=== PATIENT | male | born 1980 | race Caucasian/White ===

== ENCOUNTER 2025-01-27 13:58 | Outpatient (AMB) | payer MEDICAID, SELFPAY ==
--- NOTE | 2025-01-27 14:15 | MHC.OFFVIS ---
Intake Visit Reasons: Kidney stones Intake Note: Patient is present for KIDNEY STONES Urology Medication:TAMSULSOIN Antibiotic Allergy:NONE Blood Thinner:NONE [employer] Specialist Required: No [employer] Specialist Services: [employer] Specialist Present [employer] Specialist Name: Vero Rushing Allergies No Known Allergies Allergy (Verified 01/27/25 14:20) Medication List - Last Reviewed 01/27/25 by DULCE Henning acetaminophen 1,000 mg PO Q6H PRN cyclobenzaprine 5 mg PO TID PRN fenofibrate micronized 134 mg PO QAM oxycodone 5 mg PO Q6H PRN phenazopyridine 100 mg PO TID simvastatin 40 mg PO DAILY tamsulosin 0.4 mg PO DAILY HPI Comments Details: Mikey is a 44-year-old Tajik speaking male patient of Dr. Herr. He has a past medical history of nephrolithiasis, hyperlipidemia and intrarenal abdominal aortic aneurysm. He presents to the office today as a new patient for nephrolithiasis. He reports having followed up with his PCP as he had a CT in August that showed right-sided nonobstructing kidney stones measuring 8 mm. He discusses at length his longstanding history of nephrolithiasis since the age of 17. He reports previously having had multiple surgeries to include what sounds like a ureteroscopy as well as as well in the past. He reports having had multiple surgical interventions for nephrolithiasis in his country as well as in [place]. He currently continues to experience bilateral flank pain right side greater than left. He also describes having had intermittent episodes of nausea and vomiting over the last few weeks. In office urinalysis results reviewed with the patient today. We discussed obtaining more recent imaging. We also discussed seeking emergency room care if symptoms persist and/or worsen. He denies incontinence, hematuria, dysuria, foul smelling urine, changes to urinary stream,fever, and or chills. All questions were answered. He otherwise offers no other issues or concerns at this time. [facility] Medical History (Updated 01/27/25 @ 14:48 by HUGO Mejia) Infrarenal abdominal aortic aneurysm (AAA) without rupture High triglycerides Positive QuantiFERON-TB Gold test Nephrolithiasis Review of Systems Const All systems reviewed & are unremarkable except as noted in HPI and below Physical Exam Const General: cooperative, comfortable, no acute distress, well developed, alert and awake Orientation/consciousness: patient oriented x3 Limitations: language barrier HEENT Head: Yes normal to inspection, Yes normocephalic and Yes atraumatic Ears: hearing grossly normal bilaterally Eyes General: appearance normal, both eyes and all related structures Neck Neck: Yes normal visual inspection and Yes trachea midline Chest Chest palpation & inspection: normal inspection of the chest Resp Effort & Inspection: normal respiratory effort and able to speak in complete sentences Cardio Rate: regular rate GI Inspection: Yes normal to inspection General: Yes no CVA tenderness Back/Spine/Pelvis Back: no CVA tenderness Skin General skin exam: no rashes or lesions noted Neuro General: patient oriented x3 Extrem General: Yes normal to inspection Psych Appearance: grossly normal and well kempt Mental Status: mental status grossly normal Speech and movement: Normal speech and movement present and Clear speech present Affect: normal affect Attitude: cooperative Thought process: Normal thought process present Thought content: Normal thought content present Insight: Fair insight present (Psych) Judgement: Fair judgement present (Psych) Results AMB Urinalysis, Automated UA Leukoctes 0 Gadiel/uL Last Edit by Kaylee Welch CCM on 01/27/25 14:34 UA Nitrite Negative Last Edit by Kaylee Welch CCM on 01/27/25 14:34 UA Urobilinogen 0.2 mg/dL Last Edit by Kaylee Welch CCM on 01/27/25 14:34 UA Protein 0 mg/dL Last Edit by Kaylee Welch CCM on 01/27/25 14:34 UA pH 6.0 Last Edit by Kaylee Welch [facility] on 01/27/25 14:34 UA Blood 0 Дмитрий/uL Last Edit by Kaylee Welch [facility] on 01/27/25 14:34 UA Specific [place] 1.030 Last Edit by Kaylee Welch CCM on 01/27/25 14:34 UA Ketone Negative Last Edit by Kaylee Welch CCM on 01/27/25 14:34 UA Bilirubin 0 mg/dL Last Edit by Kaylee Welch [facility] on 01/27/25 14:34 UA Glucose 0 mg/dL Last Edit by Kaylee Welch [facility] on 01/27/25 14:34 Results Reviewed Results Reviewed: Laboratory Last Values Urine pH (Auto) 6.0 01/27/25 14:33 Specific [place] (Auto) 1.030 01/27/25 14:33 Urine Protein (Auto) 0 mg/dL 01/27/25 14:33 Glucose (UA)(Auto) 0 mg/dL 01/27/25 14:33 Urine Ketones (Auto) Negative 01/27/25 14:33 Urine Blood (Auto) 0 Дмитрий/uL 01/27/25 14:33 Urine Nitrite (Auto) Negative 01/27/25 14:33 Urine Bilirubin (Auto) 0 mg/dL 01/27/25 14:33 Urine Urobilinogen (Auto) 0.2 mg/dL 01/27/25 14:33 Leukocyte Esterase (Auto) 0 Gadiel/uL 01/27/25 14:33 Assessment & Plan Assessment & Plan (1) Nephrolithiasis: Code(s): N20.0 - Calculus of kidney Category: Medical (2) Flank pain: Code(s): R10.9 - Unspecified abdominal pain Category: Medical Plan In office urinalysis results reviewed with the patient today; as noted above. Will obtain stat CT KUB for further assessment evaluation. We discussed the importance of continuing to drink plenty of water daily. We also discussed worsening symptoms. Continue Flomax Follow-up in 1-2 weeks with imaging to be completed prior; or sooner with any issues, concerns, and or questions. Orders: Orders AMB Urinalysis Automated Today Z13.9 - Encounter for screening, unspecified CT kidney stone Today N20.0 - Calculus of kidney, R10.9 - Unspecified abdominal pain Patient Instructions: The patient had an opportunity to ask questions regarding the treatment plan. All questions were answered. Physical exam, labs, and imaging were discussed and reviewed in detail. As well as risks, benefits, and discussion of treatment choices. No major barriers to understanding were identified. The patient expressed understanding and agreement with the above treatment plan. The patient was made aware they should contact our office by phone for worsening of their current condition, the appearance of new symptoms, or with any questions or concerns. Compliance is encouraged with any medications and follow up testing that is ordered. It is a privilege to be allowed the opportunity to participate in? your urological care.? Again, if you have any questions or concerns If you have any questions or concerns please do not hesitate to contact me. The office is [phone]. This note is constructed using voice recognition software. While every effort has been made to ensure accuracy retail training manager errors may have been included. Yours sincerely, JOHN Mejia-MITCHELL Coding Level of Care Code New Pt Level 3 (15037) Diagnoses Nephrolithiasis N20.0 Flank pain R10.9
--- OUTSIDE RECORDS SUMMARY | 2025-01-27 17:42 | XMS_ITS | Encounter Summary ---
Author Organization Formerly [facility] Address [address] [place] [id number] Phone Care Team Providers Care Toe Pounder Name Role Phone JewelDominique monahan ASSISTANT SURVEYOR Primary Care Provider Pcp, Unknown Unavailable Unavailable Encounter Details Date Type Department Care Team (Latest Contact Info) Description 05/30/2023 Transcribe Orders [facility] Specimen Processing [address] [place] [address] Main Peterson MD [address] [facility] [place] [address] [email or web address] Frequency of urination (Primary Dx) Social History Tobacco Use Types Packs/Day Years Used Date Smoking Tobacco: Never Assessed Education Answer Date Recorded Are you interested in more education? Not on verena e 05/30/2023 Are you concerned about learning? Not on file 05/30/2023 No 05/30/2023 No 05/30/2023 Digital Access Answer Date Recorded No 05/30/2023 No 05/30/2023 Reliable internet access at home? Not on file 05/30/2023 Device with a working camera? Not on file Sex and Gender Information Value Date Recorded Sex Assigned at Not on file Legal Sex Male 2:57 PM EST Gender Identity Not on file Sexual Orientation Not on file documented as of this encounter Plan of Treatment Not on file documented as of this encounter Procedures Procedure Name Priority Date/Time Associated Diagnosis Comments URINE CULTURE Routine 05/30/2023 1:53 PM EST Frequency of urination URINE SEDIMENT Routine 05/30/2023 1:53 PM EST URINALYSIS Routine 05/30/2023 1:53 PM EST Frequency of urination documented in this encounter Results * (ABNORMAL) Urine sediment (05/30/2023 1:53 PM EST) WBC 21-49(A) NONE SEEN /hpf [facility] RBC 50-100(A) NONE SEEN /hpf [facility] URINE EPITHELIAL 0-4(A) NONE SEEN [facility] MUCUS Trace(A) NONE SEEN /hpf [facility] BACTERIA 1+(A) NONE SEEN /hpf [facility] YEAST 1+(A) NONE SEEN /hpf [facility] 05/30/2023 1:53 PM EST 05/30/2023 1:57 PM EST Main Peterson MD URINE ORDERABLES Final Res ult Performing Organization Address [facility] Co de Phone Number [address] [address] * (ABNORMAL) Urinalysis (05/30/2023 1:53 PM EST) COLOR Yellow Yellow [facility] [place] [facility] GLUCOSE Negative Negative [facility] BILI Negative Negative [facility] KETONES Negative Negative [facility] SPECIFIC GRAVITY 1.015 1.005 - 1.030 [facility] BLOOD 3+(A) Negative [facility] PH 6.0 5.0 - 8.0 [facility] Protein-UA 1+(A) Negative [facility] NITRITE Negative Negative [facility] Leukocyte esterase, ur 3+(A) Negative [facility] Urine (Urine) 05/30/2023 1:5 3 PM EST 05/30/2023 1:57 PM EST Main Peterson MD URINE ORDERABLES Final Res ult Performing Organization Address City/[facility]/ZIP Co de Phone Number [address] [address] * (ABNORMAL) Urine culture (05/30/2023 1:53 PM EST) Special Requests None 05/30/2023 1:53 PM EST [facility] Urine Culture 10,000 to 100,000 colony forming units per mL YEAST(A) 06/01/2023 9:52 AM EST [facility] Urine (Urine) 05/30/2023 1:5 3 PM EST 05/30/2023 1:57 PM EST Comment:CATHETER Main Peterson MD MICROBIOLOGY - GENERAL ORD ERABLES Final Result Performing Organization Address [facility]/ZIP Co de Phone Number [address] [address] documented in this encounter Visit Diagnoses Diagnosis Frequency of urination- Primary Urinary frequency documented in this encounter Care Teams Toe Pounder Relationship Specialty Start Date End Date Dominique Holloway NP [address] [place] [address] PCP - General Nurse Practitioner 05/03/23 Pcp, Unknown 05/03/23 documented as of this encounter Additional Source Comments The information contained in this document represents components of the legal health record. It is not the complete legal health record.[facility]
--- OUTSIDE RECORDS SUMMARY | 2025-01-27 17:42 | XMS_ITS | Clinical Summary ---
Author Organization [facility] Address [address] [place] [address] Care Team Providers Care Fruit Culler Name Role Phone Ronny Smith MD Primary Care Provider [phone] Source Comments PLEASE NOTE, if this patient is a minor, it may be UNLAWFUL to discuss sensitive information that is contained in these records (such as FAMILY PLANNING, MENTAL HEALTH or SUBSTANCE ABUSE) with the minor patient's parent or other person without the patient's specific authorization.[facility] Allergies No known active allergies Medications multivitamin tabletIndications: Refugee health examination Take 1 Tablet by mouth once daily Take 1 tablet by mouth daily. 30 Tablet 2 03/05/20 23 Active nicotine, polacrilex, (NICORETTE) 2 mg gumIndications:Smo reilly as needed for cravings - Weeks 1-6: Chew 1 piece of gum every 1-2 hours. Weeks 7-9: Chew 1 piece of gum every 2-4 hours. Weeks 10-12: Chew 1 piece of gum every 4-8 hours. (minimum: 9 pieces/day for first 6 weeks; maximum: 24 pieces/day during entire regimen 110 Each 3 05/16/19 24 Active fenofibrate micronized (LOFIBRA) 134 mg capsuleIndications :High triglycerides Take 1 Capsule by mouth once daily with breakfast 90 Capsule 2 03/19/20 24 Active omega-3 acid ethyl esters (LOVAZA) 1 gram capsuleIndications :High triglycerides Take 2 Capsules by mouth 2 (two) times daily 360 Capsule 03/19/20 24 Active simvastatin (ZOCOR) 40 mg tabletIndications: Hyperlipidemia, unspecified hyperlipidemia type Take 1 Tablet by mouth once daily 90 Tablet 3 04/28/20 24 Active hydrocortisone acetate (PROCTOCORT) 10 % (80 mg) rectal foamIndications:Re ctal bleeding Place 1 Applicator rectally 2 (two) times daily 15 g 06/09/19 25 Active phenazopyridine (PYRIDIUM) 100 mg tabletIndications: Dysuria Take 1 Tablet by mouth 3 (three) times daily with meals. 9 Tablet 01/09/20 25 Active cyclobenzaprine (FLEXERIL) 5 mg tablet Take 1 Tablet by mouth 3 (three) times daily as needed for muscle spasms. 15 Tablet 01/09/20 25 Active acetaminophen (TYLENOL) 500 mg tabletIndications: Dysuria,Nephrolith iasis Take 2 Tablets by mouth every 6 (six) hours as needed for pain. 30 Tablet 01/09/20 25 Active tamsulosin (FLOMAX) 0.4 mg 24 hr capsuleIndications :Nephrolithiasis Take 2 Capsules by mouth once daily. 180 Capsule 01/09/20 25 Active oxyCODONE (ROXICODONE) 5 mg tabletIndications: Rectal bleeding,Anal fistula Take 1 Tablet by mouth every 6 (six) hours as needed for pain. Max Daily Amount: 20 mg 20 Tablet 01/09/20 25 Active GAVILAX 17 gram/dose powder Take 17 g by mouth once daily. 09/26/19 25 Active acetaminophen (TYLENOL) 500 mg tabletIndications: Rectal bleeding Take 2 Tablets by mouth every 6 (six) hours as needed for pain 500 Tablet 06/09/19 25 025 Discontin ued(Reord er (E-Cancel Not Sent)) phenazopyridine (PYRIDIUM) 100 mg tabletIndications: Dysuria Take 1 Tablet by mouth 3 (three) times daily with meals 9 Tablet 07/08/19 25 025 Discontin ued(Reord er (E-Cancel Not Sent)) tamsulosin (FLOMAX) 0.4 mg 24 hr capsuleIndications :Nephrolithiasis,D ysuria Take 1 Capsule by mouth once daily. 30 Capsule 1 10/17/19 25 025 Discontin ued(Thera py completed /Not needed) Active Problems Problem Noted Date Diagnosed Date Anal fistula 10/21/2024 Rectal or anal pain 09/25/2024 Infrarenal abdominal aortic aneurysm (AAA) without rupture ([facility] V24) 09/02/2024 Overview (09/02/2024): 08/14/24: CT abdomen + Pelvis w/o contrast incidental finding of 3 cm infrarenal AAaneurysm. ACR recommendation of 2-3 year eval with U/S or CT. Re imaging Due August 2027. High triglycerides 09/26/2023 Positive QuantiFERON-TB Gold test 09/13/2023 Overview (09/13/2023): Referred to TB clinic Nephrolithiasis 03/05/2023 Overview (05/28/2024): [facility] 03/13/2024 History of kidney stones requiring requiring multiple procedures (in [place], as well as [place], and here at [facility]) who is presenting with acute onset right flank and abdominal pain. Patient had a percutaneous nephrolithotomy, which was complicated by a pseudoaneurysm status post angio ablation about one year ago. He states for the past 1 week he has had burning with urination. EP interpretation of the CAT scan of abdomen pelvis no evidence of extravasation from abdominal aortic aneurysm and no noted hydronephrosis. Clinical presentation is most concerning for abdominal aortic aneurysm CT angio performed by the preceding team shows an aneurysm well less than 5 cm recommendation for surveillance in [address] does not reveal any evidence of an obstructing stone Urine showed no signs of a kidney infection Treated with tylenol and Ibuprofen Type of surgical procedure: kidney stone removal Name of surgeon: Dr. Harp - [facility] Date of procedure: 06/04/2023 Encounters Date Type Department Care Team Description 01/27/2025 Interim Notes [address] [address] Jm Kelley 01/22/2025 Interim Notes [address] [address] Jm Kelley 01/22/2025 Interim Notes [address] [address] Jm Kelley 01/21/2025 11:00 AM EDT Office Visit [address] [address] Samira, MYLES Downey Rufaida 01/15/2025 Interim Notes [address] [address] JefferySigifredo vyass 01/12/2025 Results Follow-Up [address] [address] Ayse Mccracken NP 01/08/2025 11:00 AM EDT Office Visit [id number] [place] [address] Ayse Mccracken NP Alqaisy, Rufaida 12/29/2024 9:40 AM EDT Office Visit [facility] [address] [place] [address] Eneida Palomares DDS from Last 3 Months Immunizations Immunization Administration Dates Next Due COVID-19,SARS-COV-2 VACCINE, UNSPECIFIED (US Adm in) 03/07/2021,02/13/2021 Flu, Preservative Free 03/05/2023 Hep B,adult,adjuvanted (HEPLISAV) 09/25/2023, Influenza (FLUBLOK),recombinant,injectable,preservative Free 03/11/2024 MMR (MMR II/Priorix) 02/03/2023,12/09/2022 Moderna COVID-19 (Spikevax), Mrna, Lnp-s, Pf, 50 Mcg/0.5 Ml, 12yr+ 03/11/2024 Pfizer COVID-19 (Comirnaty), Mrna, Lnp-s, Pf, Jake-sucrose, 30 Mcg/0.3 Ml, 12yr+ 06/12/2023 TDAP 03/05/2023 Td (adult),2 Lf tetanus toxo id (TDVAX), preservative free 06/12/2023 Social History Tobacco Use Types Packs/Day Years Used Date Smoking Tobacco: Every Day Cigarettes Passive Smoke Exposure: Never Smokeless Tobacco: Never Tobacco Cessation:Ready to Q uit: Not Asked; Counseling Given: Not Answered Comments:Since 14 yo. 1 pack a day Alcohol Use Standard Drinks/Week Comments Never 0 (1 standard drink = 0.6 oz pur e alcohol) Social Connections Answer Date Recorded How often do you feel lonely or isolated from th ose around you? 1 03/16/2024 Financial Resource Strain Answer Date R ecorded Hard to pay for: Transportation 2 03/16/2024 Stress Answer Date Recorded Do you feel these kinds of stress these days? 1 03/16/2024 Physical Activity Answer Date Recorded Physical Activity 2 06/21/2023 Food Insecurity Answer Date Recorded Hard to pay for: Food 1 03/16/2024 Transportation Needs Answer Date Record ed Hard to pay for: Transportation 2 03/16/2024 Housing Stability Answer Date Recorded What is your housing situation today? 2 03/16/2024 Safety and Environment Answer Date Stef rded Safety 1 06/21/2023 Utilities Answer Date Recorded Hard to pay for: Utilities 1 03/16 Employment Answer Date Recorded Stress 1 06/21/2023 Sex and Gender Information Value Date Recorded Sex Assigned at Male 03/05/2023 9:36 AM PDT Legal Sex Male 5:56 AM PDT Gender Identity Male 03/05/2023 9:36 AM PDT Sexual Orientation Straight 03/05/2023 9: 36 AM PDT Last Filed Vital Signs Vital Sign Reading Time Taken Comments Blood Pressure 122/64 01/21/2025 11:02 AM EDT Pulse 68 01/21/2025 11:02 AM EDT Temperature 37.2 C (98.9 F) 01/21/2025 11:02 AM EDT Respiratory Rate 16 01/21/2025 11:02 AM EDT Oxygen Saturation 98% 01/08/2025 11:03 AM EDT Inhaled Oxygen Concentration - - Weight 101.2 kg (223 lb) 01/21/2025 11:02 AM EDT Height 175.3 cm (5' 9 ) 01/08/2025 11:03 AM EDT Body Mass Index 32.93 01/08/2025 11:03 AM EDT Plan of Treatment Upcoming Encounters Date Type Department Care Team (Late st Contact Info) Description 02/17/2025 4:20 PM EDT Office Visit [facility] [address] [place] [address] Francisco Frias, MIREYAS [address] [place] [address] 02/25/2025 9:20 AM EDT Office Visit [facility] [address] [place] [phone] Manuel Kidd PA-C [address] [place] [address] Health Maintenance Due Date Last Done Comments Dental FMX/Pano 1981 Imm-HPV (1 - 3-dose SCDM series) 2008 Dental Examination 08/09/2024 08/08/2023 Imm-Influenza (#1) 2025 03/11/2024, 03/05/2023 Tobacco Cessation Counseling (#1) 03/19/2025 024 Lipid Screening 03/20/2025 03/20/2024, 12/2023, 09/25/2023, Additional history exists Anxiety Screening 05/28/2025 05/28/2024 Annual Wellness (Adult): Indicated (All Coverage) 01/08/2026 01/08/2025 Diabetes Screening 01/21/2026 01/21/2025, 0 10/16/2024, 06/07/2023, Additional history exists Hypertension Screening (#1) 01/21/2026 Imm-DTaP/Tdap/Td (3 - Td or Tdap) 06/12/2033 024, 03/05/2023 Imm-Hepatitis B Completed 09/25/2023, 06/12/2023 [id number] Completed 03/11/2024, 05/15, 03/07/2021, Additional history exists Alcohol and Drug Screen Completed 05/28/19, 09/25/2023, 03/05/2023 Depression Annual Screen Completed 01/08/2025, 02/11 HIV Screening Completed 01/21/2025, 12/12, 03/05/2023 Hepatitis C Screening Completed 01/21/2025, 023 Imm-Pneumococcal Discontinued Procedures Procedure Name Priority Date/Time Associated Diagnosis Comments RHEUMATOID FACTOR QUANTITATIVE Routine 01/21/2025 11:42 AM EDT Nonintractable headache, unspecified chronicity pattern, unspecified headache type Body aches YASH SCREEN, IFA, WITH REFLEX TO TITER AND PATTERN/MIXED CONNECTIVE PANEL 2 Routine 01/21/2025 11:42 AM EDT Nonintractable headache, unspecified chronicity pattern, unspecified headache type Body aches HIV 1/2 AG & AB W/RFLX (4TH GEN) Routine 01/21/2025 11:42 AM EDT Nonintractable headache, unspecified chronicity pattern, unspecified headache type Body aches ACUTE HEPATITIS PANEL W/RFLX Routine 01/21/2025 11:42 AM EDT Nonintractable headache, unspecified chronicity pattern, unspecified headache type Body aches CREATININE KINASE ISOENZYMES W/CK TOTAL Routine 01/21/2025 11:42 AM EDT Nonintractable headache, unspecified chronicity pattern, unspecified headache type Body aches BLOOD COUNT COMPLETE AUTOMATED Routine 01/21/2025 11:42 AM EDT Nonintractable headache, unspecified chronicity pattern, unspecified headache type Body aches C-REACTIVE PROTEIN Routine 01/21/2025 11 :42 AM EDT Nonintractable headache, unspecified chronicity pattern, unspecified headache type Body aches COMPREHENSIVE METABOLIC PANEL Routine 01/21/2025 11:42 AM EDT Nonintractable headache, unspecified chronicity pattern, unspecified headache type Body aches RPR (DIAGNOSIS) WITH REFLEX TO TITER AND CONFIRMATORY TESTING Routine 01/08/2025 12:06 PM EDT Dysuria BLOOD COUNT COMPLETE AUTOMATED Routine 01/08/2025 12:06 PM EDT Dysuria HIV 1/2 AG & AB W/RFLX (4TH GEN) Routine 01/08/2025 12:06 PM EDT Dysuria OFFICE VISIT OBSERVATION NO OTHER SRVC PERFORMED Routine 12/29/2024 9:40 AM EDT Encounter for dental examination LIPIDS W RFLX TO DIRECT LDL Routine 03/20/2024 9:03 AM EST High triglycerides COMP ORAL EVALUATION - NEW/ESTABLISHED PATIENT Routine 08/08/2023 1:00 PM EDT Dental caries on smooth surface penetrating into pulp from Last 3 Months or Most Recently Relevant to Health Maintenance Results * ??YASH SCREEN, IFA, WITH REFLEX TO TITER AND PATTERN/MIXED CONNECTIVE PANEL 2 Routine (01/21/2025 11:42 AM EDT) YASH SCREEN NEGATIVE NEGATIVE 01/26/2025 10:56 AM EDT 404 Found! [place] [email or web address] Blood Blood / Unknown 01/21/2025 1 1:42 AM EDT 01/22/2025 3:48 AM EDT Narrative [email or web address] [facility] - 01/26/2025 10:57 AM EDT FASTING:NO YASH IFA is a first line screen for detecting the presence of up to approximately 150 autoantibodies in various autoimmune diseases. A negative YASH IFA result suggests an YASH-associated autoimmune disease is not present at this time, but is not definitive. If there is high clinical suspicion for Sjogren's syndrome, testing for anti-SS-A/Ro antibody should be considered. Anti-Silvia-1 antibody should be considered for clinically suspected inflammatory myopathies. . AC-0: Negative . International Consensus on YASH Patterns (https://doi.org/10.1515/eufh-6631-0461) . For additional information, please refer to http://education.[employer]/faq/EZG877 (This link is being provided for informational/ educational purposes only.) . Shayan Hogan PA-C LAB - BLOOD DRAW Final Result 404 Found! [place] [email or web address] [address] [place] [address], [address] Found! [address] [address] * HIV 1/2 AG & AB W/RFLX (4TH GEN) Routine (01/21/2025 11:42 AM EDT) Only the most recent of2 resultswithin the time period is included. HIV Screen Final HIV NEGATIVE 01/22/2025 5:00 AM EDT 404 Found! [facility] HIV AG/AB, 4TH GEN NON-REACTIVE NON-REACT IRAJ 01/22/2025 5:00 AM EDT 404 Found! [facility] Blood Blood / Unknown 01/21/2025 1 1:42 AM EDT 01/22/2025 3:38 AM EDT [facility] - 01/22/2025 5:07 AM EDT FASTING:NO HIV-1 antigen and HIV-1/HIV-2 antibodies were not detected. There is no laboratory evidence of HIV infection. us Shayan Hogan PA-C LAB - BLOOD DRAW Final Result [email or web address] [address] [address], [address] Found! [address] [address] * ACUTE HEPATITIS PANEL W/RFLX Routine (01/21/2025 11:42 AM EDT) Pathologist [facility] HEPATITIS A IGM ANTIBODY NON-REACT IRAJ NON-REACT IRAJ 01/22/2025 5:00 AM EDT 404 Found! [facility] HEPATITIS B SURFACE ANTIGEN NON-REACT IRAJ NON-REACT IRAJ 01/22/2025 4:59 AM EDT 404 Found! [facility] HEPATITIS B CORE IGM ANTIBODY NON-REACT IRAJ NON-REACT IRAJ 01/22/2025 5:00 AM EDT 404 Found! [facility] HEPATITIS C ANTIBODY NON-REACT IRAJ NON-REACT IRAJ 01/22/2025 5:00 AM EDT 404 Found! [facility] Blood Blood / Unknown 01/21/2025 1 1:42 AM EDT 01/22/2025 3:36 AM EDT [facility] - 01/22/2025 5:07 AM EDT FASTING:NO . HCV antibody was non-reactive. There is no laboratory evidence of HCV infection. . In most cases, no further action is required. However, if recent HCV exposure is suspected, a test for HCV RNA (test code 41949) is suggested. . For additional information please refer to http://[employer]faq/YJA14y2 (This link is being provided for informational/ educational purposes only.) . . For additional information, please refer to http://[employer]faq/FNQ949 (This link is being provided for informational/ educational purposes only.) . Shayan MIRANDA-C LAB - BLOOD DRAW Final Result Performing Organization Address City/[facility]/ZIP Co de Phone Number [facility] [address] [address], [facility] [address] [address] * CREATININE KINASE ISOENZYMES W/CK TOTAL Routine (01/21/2025 11:42 AM EDT) CREATINE KINASE, TOTAL 108 26 - 366 U/L 01/24/2025 9:45 AM EDT [facility]/ JHOAN SAMPSON CK-BB None Detected None Detected % 01/26/2025 12:43 PM EDT [facility]/ STAPLES CHANTILLY CK-MB 0 <5 % 01/26/2025 12:43 PM EDT [facility]/ STAPLES CHANTILLY CK-MM 100 95 - 100 % 01/26/2025 12:43 PM EDT [facility]/ STAPLES SYDTILLY INTERPRETATION see note 01/26/2025 12:43 PM EDT [facility]/ STAPLES SYDTILLY Blood Blood / Unknown 01/21/2025 1 1:42 AM EDT 01/23/2025 3:07 PM EDT [facility] SYDTILLY - 01/26/2025 12:44 PM EDT FASTING:NO FASTING:NO Normal isoenzyme pattern with a normal total activity. us Shayan Hogan RUTH-Juan LAB - BLOOD DRAW Final Result Performing Organization Address City/[facility]/ZIP Co de Phone Number [email or web address] [address] [place], [place] , [place] [facility]/STAPLES poLightTILLY [address] [place], [place] * RHEUMATOID FACTOR QUANTITATIVE Routine (01/21/2025 11:42 AM EDT) RHEUMATOID FACTOR <10 <14 IU/mL 01/22/2025 5:08 AM EDT [facility] Blood Blood / Unknown 01/21/2025 1 1:42 AM EDT 01/22/2025 3:38 AM EDT [facility] - 01/22/2025 5:17 AM EDT FASTING:NO [facility]-C LAB - BLOOD DRAW Final Result Performing Organization Address [facility] Co de Phone Number [address] Found! [address] [address], [facility] [address] [address] * C-REACTIVE PROTEIN Routine (01/21/2025 11:42 AM EDT) Pathologist [facility] C-REACTIVE PROTEIN 6.4 <8.0 mg/L 01/22/2025 5:08 AM EDT [facility] Blood Blood / Unknown 01/21/2025 1 1:42 AM EDT 01/22/2025 3:38 AM EDT [facility] - 01/22/2025 5:17 AM EDT FASTING:NO Shayan [facility]-C LAB - BLOOD DRAW Final Result Performing Organization Address [facility] de Phone Number [address] Found! [address] [address], [employer] [address] [address] * (ABNORMAL) BLOOD COUNT COMPLETE AUTOMATED Routine (01/21/2025 11:42 AM EDT) Only the most recent of2 resultswithin the time period is included. Pathologist [facility] WHITE BLOOD CELL COUNT 8.8 3.8 - 10.8 Thousand/ uL 01/22/2025 4:31 AM EDT [facility] RED BLOOD CELL COUNT 5.79 4.20 - 5.80 Million/u L 01/22/2025 4:31 AM EDT [facility] HEMOGLOBIN 17.2(H) 13.2 - 17.1 g/dL 01/22/2025 4:31 AM EDT [facility] HEMATOCRIT 51.6(H) 38.5 - 50.0 % 01/22/2025 4:31 AM EDT [facility] MCV 89.1 80.0 - 100.0 fL 01/22/2025 4:31 AM EDT [facility] MCH 29.7 27.0 - 33.0 pg 01/22/2025 4:31 AM EDT [facility] MCHC 33.3 32.0 - 36.0 g/dL 01/22/2025 4:31 AM EDT [facility] RDW 13.5 11.0 - 15.0 % 01/22/2025 4:31 AM EDT [facility] PLATELET COUNT 226 140 - 400 Thousand/ uL 01/22/2025 4:31 AM EDT [facility] MPV 9.3 7.5 - 12.5 fL 01/22/2025 4:31 AM EDT [facility] Blood Blood / Unknown 01/21/2025 1 1:42 AM EDT 01/22/2025 3:20 AM EDT Narrative [email or web address] - 01/22/2025 4:33 AM EDT FASTING:NO For adults, a slight decrease in the calculated MCHC value (in the range of 30 to 32 g/dL) is most likely not clinically significant; however, it should be interpreted with caution in correlation with other red cell parameters and the patient's clinical condition. us Shayan Hogan PA-C LAB - BLOOD DRAW Final Result [email or web address] [address] [address], [address] Found! [address] [address] * COMPREHENSIVE METABOLIC PANEL Routine (01/21/2025 11:42 AM EDT) GLUCOSE 93 65 - 139 mg/dL 01/22/2025 6:00 AM EDT [facility] UREA NITROGEN (BUN) 16 7 - 25 mg/dL 01/22/2025 6:00 AM EDT [facility] CREATININE (blood) 0.79 0.60 - 1.29 mg/dL 01/22/2025 6:00 AM [facility] EGFR 113 > OR = 60 mL/min/1. 73m2 01/22/2025 6:00 AM [facility] BUN/CREATININE RATIO SEE NOTE: 6 - 22 (calc) 01/22/2025 6:00 AM [facility] SODIUM 138 135 - 146 mmol/L 01/22/2025 6:00 AM [facility] POTASSIUM 4.4 3.5 - 5.3 mmol/L 01/22/2025 6:00 AM [facility] CHLORIDE 106 98 - 110 mmol/L 01/22/2025 6:00 AM [facility] CARBON DIOXIDE 24 20 - 32 mmol/L 01/22/2025 6:00 AM [facility] CALCIUM 9.3 8.6 - 10.3 mg/dL 01/22/2025 6:00 AM [facility] PROTEIN, TOTAL 7.4 6.1 - 8.1 g/dL 01/22/2025 6:00 AM [facility] ALBUMIN 4.6 3.6 - 5.1 g/dL 01/22/2025 6:00 AM [facility] GLOBULIN 2.8 1.9 - 3.7 g/dL (calc) 01/22/2025 6:00 AM [facility] ALBUMIN/GLOBULI N RATIO 1.6 1.0 - 2.5 (calc) 01/22/2025 6:00 AM [facility] BILIRUBIN, TOTAL 0.5 0.2 - 1.2 mg/dL 01/22/2025 6:00 AM [facility] ALKALINE PHOSPHATASE 98 36 - 130 U/L 01/22/2025 6:00 AM [facility] AST 21 10 - 40 U/L 01/22/2025 6:00 AM [facility] ALT 26 9 - 46 U/L 01/22/2025 6:00 AM [facility] Blood Blood / Unknown 01/21/2025 1 1:42 AM EDT 01/22/2025 3:38 AM EDT [facility] - 01/22/2025 6:31 AM EDT FASTING:NO . Non-fasting reference interval . Not Reported: BUN and Creatinine are within reference range. . Shayan Hogan PA-C LAB - BLOOD DRAW Final Result Performing Organization Address [facility] Co de Phone Number [address] Found! [address] [address], [address] Found! [address] [address] * RPR (DIAGNOSIS) WITH REFLEX TO TITER AND CONFIRMATORY TESTING Routine (01/08/2025 12:06 PM EDT) [facility] RPR (DX) W/REFL TITER AND CONFIRMATORY TESTING NON-REACT IRAJ NON-REACT IRAJ 01/10/2025 4:47 PM EDT 404 Found! [facility] Serum Blood / Unknown 01/08/2025 1 2:06 PM EDT 01/09/2025 2:00 AM EDT Narrative [email or web address] - 01/10/2025 4:51 PM EDT FASTING:NO . No laboratory evidence of syphilis. If recent exposure is suspected, submit a new sample in 2-4 weeks. . Ayse Mccracken NP LAB - BLOOD DRAW Final Resul t Performing Organization Address [facility] Co de Phone Number [address] Found! [address] [address], [address] Found! [address] [address] * (ABNORMAL) LIPIDS W RFLX TO DIRECT LDL (03/20/2024 9:03 AM EST) [facility] CHOLESTEROL, TOTAL 256(H) <200 mg/dL [facility] HDL CHOLESTEROL 28(L) > OR = 40 mg/dL [facility] TRIGLYCERIDES 423(H) <150 mg/dL [facility] Comment: If a non-fasting specimen was collected, consider repeat triglyceride testing on a fasting specimen if clinically indicated. Sharonda et al. J. of Clin. Lipidol. 2015;9:129-169. LDL-CHOLESTEROL See Note [employer] Comment: LDL cholesterol not calculated. Triglyceride levels greater than 400 mg/dL invalidate calculated LDL results. Reference range: <100 Desirable range <100 mg/dL for primary prevention; <70 mg/dL for patients with CHD or diabetic patients with > or = 2 CHD risk factors. LDL-C is now calculated using the Rowena calculation, which is a validated novel method providing better accuracy than the Friedewald equation in the estimation of LDL-C. Giovani PRESLEY et al. JOHNNIE. 2013;310(19): 4076-0251 (http://education.E96/faq/PYN281) CHOL/HDLC RATIO 9.1(H) <5.0 (calc) [facility] NON-HDL CHOLESTEROL 228(H) <130 mg/dL (calc) [facility] Comment: For patients with diabetes plus 1 major ASCVD risk factor, treating to a non-HDL-C goal of <100 mg/dL (LDL-C of <70 mg/dL) is considered a therapeutic option. Blood Blood / Unknown 03/20/2024 9 :03 AM EST 03/20/2024 9:04 AM EST Narrative [facility] - 2024 11:15 AM EST FASTING:YES Ronny Smith MD LAB - BLOOD DRAW Final Result [facility] [address] [place] [address], [facility] [address] [place] [phone] from Last 3 Months or Most Recently Relevant to Health Maintenance Insurance [place] [address] ACO Care Teams Fruit Culler Relationship Specialty Start Date End Date Ronny Smith MD [address] [place] [address] PCP - General Internal Medicine 09/25/23
--- OUTSIDE RECORDS SUMMARY | 2025-01-27 17:42 | XMS_ITS | Clinical Summary ---
Author Organization [facility] Address [address] [place] [address] Phone Care Team Providers Care Sustainability Director Name Role Phone Dominique Holloway NP Primary Care Provider [phone] Pcp, Unknown Unavailable Unavailable Allergies No known active allergies Medications ibuprofen (ADVIL,MOTRIN) 600 MG tablet Take 600 mg by mouth every 6 (six) hours as needed for pain (specific location in comments). 04/25/2023 Active nicotine polacrilex (NICORETTE) [address] 2 mg inside cheek as needed for smoking cessation. 05/16/2023 Active acetaminophen (TYLENOL) 325 mg tablet Take 3 tablets (975 mg total) by mouth every 6 (six) hours. 0 06/07/2023 Active polyethylene glycol (MIRALAX) 17 gram packet Take 17 g by mouth daily as needed for mild constipation. 14 packet 06/07/2023 Active HYDROmorphone (DILAUDID) 2 MG tablet Take 1 tablet (2 mg total) by mouth every 6 (six) hours as needed for pain (specific location in comments). 20 tablet 06/07/2023 Active Active Problems Problem Noted Date Diagnosed Date Kidney stones 06/03/2023 Immunizations No known immunizations Social History Tobacco Use Types Packs/Day Years Used Date Smoking Tobacco: Every Day Cigarettes 1 20 Tobacco Cessation:Ready to Q uit: Not Asked; Counseling Given: Not Answered Alcohol Use Standard Drinks/Week Comments Not Currently 0 (1 standard drink = 0.6 oz pur e alcohol) Education Answer Date Recorded Are you interested in more education? Not on verena e 05/30/2023 Are you concerned about learning? Not on file 05/30/2023 No 05/30/2023 No 05/30/2023 Digital Access Answer Date Recorded No 05/30/2023 No 05/30/2023 Reliable internet access at home? Not on file 05/30/2023 Device with a working camera? Not on file Intimate Partner Violence Answer Date R ecorded Are you denied basic needs s uch as food, clothing, or medical care? No 06/04/2023 In the past 12 months have y ou been in a relationship with a person who hurts, threatens, or tries to control you? No 06/04/2023 Are you denied basic needs s uch as food, clothing, or medical care? No 06/04/2023 In the past 12 months have y ou been in a relationship with a person who hurts, threatens, or tries to control you? No 06/04/2023 Sex and Gender Information Value Date Recorded Sex Assigned at Not on file Legal Sex Male 2:57 PM EST Gender Identity Not on file Sexual Orientation Not on file Last Filed Vital Signs Vital Sign Reading Time Taken Comments Blood Pressure 124/82 06/07/2023 12:18 PM EST Pulse 84 06/07/2023 12:18 PM EST Temperature 36.5 C (97.7 F) 06/07/2023 12:18 PM EST Respiratory Rate 18 06/07/2023 12:18 PM EST Oxygen Saturation 92% 06/07/2023 12:18 PM EST Inhaled Oxygen Concentration - - Weight 90 kg (198 lb 6.6 oz) 06/03/2023 3:06 PM EST Height 175.3 cm (5' 9 ) 06/03/2023 3:06 PM EST Body Mass Index 29.3 06/03/2023 3:06 PM EST Plan of Treatment Health Maintenance Due Date Last Done Comments LIPID PANEL 1981 DEPRESSION SCREENING 1993 SMOKING Hx and SMOKELESS TOBACCO SCREENING 1994 HIV ONE-TIME SCREENING (18-6 5 YEARS) 1999 PNEUMOCOCCAL VACCINES (0-49 years) (1 of 2 - PCV) 2000 INFLUENZA VACCINE (#1) 2024 03/05/2023 COVID-19 VACCINE (4 - 2024-2 6 season) 2025 06/12/2023, 03/07/2021, 02/13/2021 SCREENING FOR DIABETES 06/07/2026 06/07/2023 Adult Td,Tdap Booster 06/12/2033 06/12/2023 , 03/05/2023 HEPATITIS C SCREENING Completed 03/05/2023 HEPATITIS A VACCINES Aged Out No long er eligible based on patient's age to complete this topic HIB VACCINES Aged Out No longer eligi ble based on patient's age to complete this topic MENINGOCOCCAL VACCINES (ACWY) Aged Out No longer eligible based on patient's age to complete this topic MENINGOCOCCAL VACCINES (B) Aged Out N o longer eligible based on patient's age to complete this topic Medical Devices Not on file Insurance [facility] C3 ACO Advance Directives For more information, please contact: [phone] (9AM - 5PM [facility], Saturday-Saturday) Documents on File Type Date Recorded Patient Letter Of Credit Document Examiner Expl anation Healthcare Proxy 06/06/2023 2:37 PM * Full Code (Latest Code Status on File) Date Activated Date Inactivated Comments 06/03/2023 2:42 PM Question Answer Comments Code Status Confirmed With: Patient Care Teams Sustainability Director Relationship Specialty Start Date End Date Dominique Holloway NP [address] [place] [address] PCP - General Nurse Practitioner 05/03/23 Pcp, Unknown 05/03/23 Additional Source Comments The information contained in this document represents components of the legal health record. It is not the complete legal health record.[facility]
--- OUTSIDE RECORDS SUMMARY | 2025-01-27 17:42 | XMS_ITS | Encounter Summary ---
Author Organization [facility] Address [address] [place] [address] Phone Care Team Providers Care Service Center Manager Name Role Phone Dominique Holloway FUNERAL ARRANGER Primary Care Provider Pcp, Unknown Unavailable Unavailable Encounter Details Date Type Department Care Team (Late st Contact Info) Description 06/04/[address] [facility] Periop [address] [place] [address] Social History Tobacco Use Types Packs/Day Years Used Date Smoking Tobacco: Every Day Cigarettes 1 20 Alcohol Use Standard Drinks/Week Comments Not Currently [...] on file documented as of this encounter Visit Diagnoses Not on filedocumented in this encounter Care Teams Service Center Manager Relationship Specialty Start Date End Date Dominique Holloway NP [address] [place] [address] PCP - General Nurse Practitioner 05/03/23 Pcp, Unknown 05/03/23 documented as of this encounter Additional Source Comments The information contained in this document represents components of the legal health record. It is not the complete legal health record.[facility]
--- OUTSIDE RECORDS SUMMARY | 2025-01-27 17:42 | XMS_ITS | Encounter Summary ---
Author Organization [facility] Address [address] [place] [address] Phone Care Team Providers Care Manager Medical Affairs Name Role Phone Dominique Holloway RISK ANALYST Primary Care Provider [phone] Pcp, Unknown Unavailable Unavailable Encounter Details Date Type Department Care Team (Late st Contact Info) Description 06/04/2023 Procedure Pass [facility] [address] [place] [address] Social History Tobacco Use Types Packs/Day Years [...] on filedocumented in this encounter Care Teams Manager Medical Affairs Relationship Specialty Start Date End Date Dominique Holloway NP [facility] [place] [id number] PCP - General Nurse Practitioner 05/03/23 Pcp, Unknown 05/03/23 documented as of this encounter Additional Source Comments The information contained in this document represents components of the legal health record. It is not the complete legal health record.[facility]
--- OUTSIDE RECORDS SUMMARY | 2025-01-27 17:42 | XMS_ITS | Clinical Summary ---
Author Organization [facility] Address [address] 7[address] [place] [address] Care Team Providers Care Utility Worker [place] Name Role Phone Unavailable Primary Care Provider Unavailabl e Encounters Date Type Department Care Team Description 12/01/2024 Population Health Risk Score [facility] (C3) Department [address] [facility] [address] [place] [address] Provider, Population Health Generic from Last 3 Months Social History Tobacco Use Types Packs/Day Years Used Date Smoking Tobacco: Never Assessed Sex and Gender Information Value Date Recorded Sex Assigned at Not on file Legal Sex Male 9:31 PM EDT Gender Identity Not on file Sexual Orientation Not on file Plan of Treatment Health Maintenance Due Date Last Done Comments Depression Screening 1981 Lipid Panel 1981 SDOH Screening 1981 Disability Screening 1981 Alcohol/Substance Use Screening 1993 Tobacco Screening 1993 Family Planning (PISQ) 1996 HPV Vaccines (1 - Male 3-dose series) 1996 Hepatitis C Screening 1999 Influenza Vaccine (#1) 2025 03/11/2024, 2022 Zoster Vaccines (1 of 2) 2031 DTaP/Tdap/Td Vaccines (3 - Td or Tdap) 06/12/2033 06/12/2023, 03/05/2023 RSV Patients and Patients Aged 60 years or older (1 - 1-dose 75+ series) 2056 Hepatitis B Vaccines Completed 09/25/2023, 06/12/19 COVID-19 Vaccine Completed 03/11/2024, , 03/07/2021, Additional history exists HIV Screening Completed 01/21/2025, 01/11, 01/08/2025, Additional history exists HIB Vaccines Aged Out No longer eligi ble based on patient's age to complete this topic Hepatitis A Vaccines Aged Out No long er eligible based on patient's age to complete this topic IPV Vaccines Aged Out No longer eligi ble based on patient's age to complete this topic Meningococcal B Vaccine Aged Out No l onger eligible based on patient's age to complete this topic Meningococcal Vaccine Aged Out No speedy da eligible based on patient's age to complete this topic Pneumococcal Vaccine: Pediatrics (0 to 5 Years) and At-Risk Patients (6 to 49) Years Aged Out No longer eligible based on patient's age to complete this topic RSV under 20 months Aged Out No longe r eligible based on patient's age to complete this topic Rotavirus Vaccines Aged Out No longer eligible based on patient's age to complete this topic
--- OUTSIDE RECORDS SUMMARY | 2025-01-27 17:42 | XMS_ITS | Encounter Summary ---
Author Organization [facility] Address [address] [place] [address] Care Team Providers Care Joint Cleaning Machine Operator Name Role Phone Ronny Smith MD Primary Care Provider [phone] Encounter Details Date Type Department Care Team (Late st Contact Info) Description 01/12/2025 Results Follow-Up [facility] [address] [place] [address] Ayse Mccracken, [place] [address] [facility] [place], [place] [phone] Social History Tobacco Use Types Packs/Day Years Used Date Smoking Tobacco: Every Day Cigarettes Passive Smoke Exposure: Never Smokeless Tobacco: Never Comments:Since 14 yo. 1 pack a day [...] Orientation Straight 03/05/2023 9: 36 AM PDT documented as of this encounter Plan of Treatment Upcoming Encounters Date Type Department Care Team (Late st Contact Info) Description 02/17/2025 4:20 PM EDT Office Visit [facility] Jose Cavazos [address] [place] [phone] Francisco Frias, [place] [address] [place] [address] 02/25/2025 9:20 AM EDT Office Visit [facility] Jose [address] [place] [phone] Manuel Kidd PA-C [address] [place] [address] documented as of this encounter Visit Diagnoses Not on filedocumented in this encounter Additional Health Concerns Assessment Noted Time PHQ-9 Depression Total Score: 0 01/09/20 25 11:04 AM PDT documented as of this encounter Care Teams Joint Cleaning Machine Operator Relationship Specialty Start Date End Date Ronny Smith MD [address] [place] [address] PCP - General Internal Medicine 09/25/23 documented as of this encounter
--- OUTSIDE RECORDS SUMMARY | 2025-01-27 17:42 | XMS_ITS | Encounter Summary ---
Author Organization [facility] Address [address] [place] [address] Phone Care Team Providers Care Mixing Engineer Name Role Phone Dominique Holloway RETAIL SUPPORT SPECIALIST Primary Care Provider Pcp, Unknown Unavailable Unavailable Encounter Details Date Type Department Care Team (Late st Contact Info) Description 08/07/2023 Transcribe Orders [facility] [address] [address] Pcp, Unknown Social History Tobacco Use Types Packs/Day Years [...] on filedocumented in this encounter Care Teams Mixing Engineer Relationship Specialty Start Date End Date Dominique Holloway NP [facility] [place] [id number] PCP - General Nurse Practitioner 05/03/23 Pcp, Unknown 05/03/23 documented as of this encounter Additional Source Comments The information contained in this document represents components of the legal health record. It is not the complete legal health record.[facility]
--- OUTSIDE RECORDS SUMMARY | 2025-01-27 17:42 | XMS_ITS | Encounter Summary ---
Author Organization [facility] Address [address] [place] [address] Care Team Providers Care Disk Recordist Name Role Phone Ronny Smith MD Primary Care Provider [phone] Reason for Visit * Reason Comments Prior Authorization Encounter Details Date Type Department Care Team (Late st Contact Info) Description 01/27/2025 Interim Notes [facility] Main [address] [place] [phone] Jm Kelley [address] [place] [address] Social History Tobacco Use Types Packs/Day Years [...] AM PDT documented as of this encounter Progress Notes * Jm Sadlerado - 01/27/2025 8:51 AM EDT You have successfully submitted the Referral for YAQUELIN EDREES 1980 [facility] NPI #[id number] The following Referral Authorization Number should be retained in your records. Referral Authorization # [id number] Number of Visits 12 01/22/2025-01/22/2026 documented in this encounter Plan of Treatment Upcoming Encounters Date Type Department Care Team (Late st Contact Info) Description 02/17/2025 4:20 PM EDT Office Visit [facility] [address] [place] [address] Francisco Frias DDS [address] [place] [address] 02/25/2025 9:20 AM EDT Office Visit [facility] [address] [place] [address] Manuel Kidd PA-C [address] [place] [address] documented as of this encounter Visit Diagnoses Not on filedocumented in this encounter Additional Health Concerns Assessment Noted Time PHQ-9 Depression Total Score: 0 01/09/20 25 11:04 AM PDT documented as of this encounter Care Teams Disk Recordist Relationship Specialty Start Date End Date Ronny Smith MD [address] [place] [address] PCP - General Internal Medicine 09/25/23 documented as of this encounter
--- OUTSIDE RECORDS SUMMARY | 2025-01-27 17:42 | XMS_ITS | Encounter Summary ---
Author Organization [facility] Address [address] [place] [address] Care Team Providers Care Filament Cutter Name Role Phone Ronny Smith MD Primary Care Provider [phone] Encounter Details Date Type Department Care Team (Late st Contact Info) Description 01/22/2025 Interim Notes [facility] [address] [place] [phone] KelleyJm sears [address] [place] [address] Social History Tobacco Use Types Packs/Day Years [...] of this encounter Progress Notes * Jm Kelley - 01/22/2025 9:09 AM EDT You have successfully submitted the Referral for YAQUELIN EDREES 1980 [employer] NPI #[id number] The following Referral Authorization Number should be retained in your records. Referral Authorization # [id number] Number of Visits 12 01/22/2025-01/22/2026 documented in this encounter Plan of Treatment Upcoming Encounters Date Type Department Care Team (Late st Contact Info) Description 02/17/2025 4:20 PM EDT Office Visit [facility] [address] [place] [phone] Francisco Frias DDS [address] [place] [address] 02/25/2025 9:20 AM EDT Office Visit [facility] [address] [place] [phone] Manuel Kidd PA-C [address] [place] [address] documented as of this encounter Visit Diagnoses Not on filedocumented in this encounter Additional Health Concerns Assessment Noted Time PHQ-9 Depression Total Score: 0 01/09/20 11:04 AM PDT documented as of this encounter Care Teams Filament Cutter Relationship Specialty Start Date End Date Ronny Smith MD [address] [place] [address] PCP - General Internal Medicine 09/25/23 documented as of this encounter
--- OUTSIDE RECORDS SUMMARY | 2025-01-27 17:42 | XMS_ITS | Encounter Summary ---
Author Organization [facility] Address [address] [place] [address] Care Team Providers Care Greaser And Oiler Name Role Phone Ronny Smith MD Primary Care Provider [phone] Reason for Visit * Reason Comments Prior Authorization Encounter Details Date Type Department Care Team (Late st Contact Info) Description 01/22/2025 Interim Notes [facility] Main [address] [place] [phone] Jm Kelley [address] [place] [address] Social History Tobacco Use Types Packs/Day Years [...] Progress Notes * Jm Kelley - 01/22/2025 8:40 AM EDT You have successfully submitted the Referral for YAQUELIN EDREES 1980 [facility] facility npi #[id number] The following Referral Authorization Number should be retained in your records. Referral Authorization # [id number] Number of Visits 6 01/22/2025-01/22/2026 You have successfully submitted the Referral for YAQUELIN EDREES 1980 [facility] group npi #[id number] The following Referral Authorization Number should be retained in your records. Referral Authorization # [id number] Number of Visits 6 01/22/2025-01/22/2026 documented in this encounter Plan of Treatment Upcoming Encounters Date Type Department Care Team (Late st Contact Info) Description 02/17/2025 4:20 PM EDT Office Visit [facility] [address] [place] [phone] Francisco Frias DDS [address] [place] [address] 02/25/2025 9:20 AM EDT Office Visit [facility] [address] [place] [address] Manuel Kidd PA-C [address] [place] [address] documented as of this encounter Visit Diagnoses Not on filedocumented in this encounter Additional Health Concerns Assessment Noted Time PHQ-9 Depression Total Score: 0 01/09/20 25 11:04 AM PDT documented as of this encounter Care Teams Greaser And Oiler Relationship Specialty Start Date End Date Ronny Smith MD [address] [place] [address] PCP - General Internal Medicine 09/25/23 documented as of this encounter
== END 2025-01-27 15:01 | disposition home or self-care (01) ==
LOC: HO.HUSH 13:59
PROVIDERS: PCP Student in an Organized Health Care Education/Training Program; Visit Provider Nurse Practitioner Family
DX: N20.0 Calculus of kidney (principal); R10.9 Unspecified abdominal pain; Z13.9 Encounter for screening, unspecified
CPT/HCPCS: 99203

== ENCOUNTER → 2025-01-27 13:58 | Outpatient (BNVA) | payer MEDICAID, SELFPAY | PROVIDERS: PCP Student in an Organized Health Care Education/Training Program; Visit Provider Nurse Practitioner Family | DX: N20.0 Calculus of kidney (principal); R10.9 Unspecified abdominal pain | CPT/HCPCS: 81003; 99212 ==

== ENCOUNTER 2025-02-05 11:15 | Outpatient (REF) | payer MEDICAID, SELFPAY ==
--- NOTE | ~2025-02-05 | CT_ITS ---
EXAMINATION: CT ABDOMEN AND PELVIS WITHOUT CONTRAST CLINICAL INFORMATION: R10.9 - Unspecified abdominal pain COMPARISON: None available. TECHNIQUE: Multidetector volumetric imaging was performed from the superior aspect of the liver through the pubic symphysis. Sagittal and coronal reformatted images were obtained on the technologist's workstation. This CT examination was performed using dose optimization techniques as appropriate, variously including the following: *Automated exposure control *Adjustment of mA and/or kV according to patient size (this includes techniques or standardized protocols for targeted exams where dose is matched to indication/reason for exam; i.e. extremities or head) *Use of iterative reconstruction technique FINDINGS: LUNG BASES: The visualized lung bases are unremarkable. LIVER, GALLBLADDER, AND BILIARY TREE: The liver is normal in size, shape, and attenuation. No focal hepatic lesion or biliary ductal dilatation is present. The gallbladder is unremarkable with no evidence of radiopaque gallstones, gallbladder wall thickening, or obvious pericholecystic inflammatory changes. PANCREAS: Unremarkable. SPLEEN: Unremarkable. ADRENAL GLANDS: Unremarkable. KIDNEYS AND URETERS: There is focal high density with streak artifact anterior to the lower pole right kidney consistent with a surgical change. Just deep to this region, there is calcification measuring 4 x 8 mm probably representing a nonobstructing stone. Dystrophic calcification is not ruled out. There is no hydronephrosis and no stones in the ureters. BLADDER: Unremarkable. GASTROINTESTINAL TRACT: The small and large bowel are unremarkable. The appendix is unremarkable. ABDOMINAL WALL: Small umbilical hernia contains adipose tissue. There is a small fat-containing left inguinal hernia versus fatty spermatic cord. LYMPH NODES: Normal. VASCULAR: Just distal to the inferior mesenteric artery origin, there is fusiform dilation of a 4-5 cm segment of the distal abdominal aorta. The diameter measured 3.3 x 3.5 cm. Aneurysm terminates just prior to bifurcating into common iliac arteries. PELVIC VISCERA: Unremarkable. OSSEOUS STRUCTURES: Unremarkable. CT/CT kidney stone IMPRESSION: Postsurgical changes are present anterior to the lower pole right kidney. There is a 4 x 8 mm calcification in the lower pole of the left kidney that is probably a stone but could represent dystrophic calcification. Abdominal aortic aneurysm. There is fusiform dilation of the abdominal aorta distal to the inferior mesenteric artery origin measuring up to 3.3 x 3.5 cm. Fleischner guidelines were followed. Electronically signed by: Partha Segura MD 02/05/2025 12:16 PM EDT RP
--- OUTSIDE RECORDS SUMMARY | 2025-02-05 13:10 | XMS_ITS | Encounter Summary ---
Author Organization [facility] Address [address] [place] [address] Care Team Providers Care Ordnance Keeper Name Role Phone Ronny Smith MD Primary Care Provider [phone] Encounter Details Date Type Department Care Team (Late st Contact Info) Description 01/12/2025 Results Follow-Up [facility] [address] [place] [address] Ayse Mccracken, [place] [address] [facility] [place], [place] [phone] Social History Tobacco Use Types Packs/Day Years [...] 02/17/2025 4:20 PM EDT Office Visit [facility] Jose Cavazos [address] [place] [phone] Francisco Frias, MIREYAS [address] [place] [address] 02/25/2025 9:20 AM EDT Office Visit [facility] Jose [address] [place] [phone] Manuel Kidd PA-C [address] [place] [address] documented as of this encounter Visit Diagnoses Not on filedocumented in this encounter Additional Health Concerns Assessment Noted Time PHQ-9 Depression Total Score: 0 01/09/20 25 11:04 AM PDT documented as of this encounter Care Teams Ordnance Keeper Relationship Specialty Start Date End Date Ronny Smith MD [address] [place] [address] PCP - General Internal Medicine 09/25/23 documented as of this encounter
--- OUTSIDE RECORDS SUMMARY | 2025-02-05 13:10 | XMS_ITS | Clinical Summary ---
Author Organization [facility] Address [address] [facility] [address] [place] [address] Care Team Providers Care Auriculotherapist Name Role Phone Unavailable Primary Care Provider Unavailabl e Encounters Date Type Department Care Team Description 12/01/2024 Population Health Risk Score [facility] (C3) Department [address] [facility] 7 [place] [phone] Provider, Population Health Generic from Last 3 [...]
--- OUTSIDE RECORDS SUMMARY | 2025-02-05 13:10 | XMS_ITS | Encounter Summary ---
Author Organization [facility] Address [address] [place] [address] Phone Care Team Providers Care Personnel Supervisor Name Role Phone JewelDominique monahan LEAD WAREHOUSE ASSOCIATE Primary Care Provider Pcp, Unknown Unavailable Unavailable Encounter Details Date Type Department Care Team (Latest Contact Info) Description 05/30/2023 Transcribe Orders [facility] Specimen Processing [address] [place] [address] Main Peterson MD [address] [facility] [place] [address] [email or web address] Frequency of urination (Primary Dx) Social History [...] PM EST) WBC 21-49(A) NONE SEEN /hpf [facility] RBC 50-100(A) NONE SEEN /hpf [facility] URINE EPITHELIAL 0-4(A) NONE SEEN [facility] MUCUS Trace(A) NONE SEEN /hpf [facility] BACTERIA 1+(A) NONE SEEN /hpf [facility] YEAST 1+(A) NONE SEEN /hpf [facility] 05/30/2023 1:53 PM EST 05/30/2023 1:57 PM EST Main Peterson MD URINE ORDERABLES Final Res ult Performing Organization Address [facility] Co de Phone Number [address] [address] * (ABNORMAL) Urinalysis (05/30/2023 1:53 PM EST) COLOR Yellow Yellow [facility] CLARITY CLOUDY [facility] GLUCOSE Negative Negative [facility] BILI Negative Negative [facility] KETONES Negative Negative [facility] SPECIFIC GRAVITY 1.015 1.005 - 1.030 [facility] BLOOD 3+(A) Negative [facility] PH 6.0 5.0 - 8.0 [facility] Protein-UA 1+(A) Negative [facility] NITRITE Negative Negative [facility] Leukocyte esterase, ur 3+(A) Negative [facility] Urine (Urine) 05/30/2023 1:5 3 PM EST 05/30/2023 1:57 PM EST Main Peterson MD URINE ORDERABLES Final Res ult Performing Organization Address City/[facility]/ZIP Co de Phone Number [address] [address] * (ABNORMAL) Urine culture (05/30/2023 1:53 PM EST) Special Requests None 05/30/2023 1:53 PM EST [facility] Urine Culture 10,000 to 100,000 colony forming units per mL YEAST(A) 06/01/2023 9:52 AM EST [facility] Urine (Urine) 05/30/2023 1:5 3 PM EST 05/30/2023 1:57 PM EST Comment:CATHETER Main Peterson MD MICROBIOLOGY - GENERAL ORD ERABLES Final Result Performing Organization Address [facility]/ZIP Co de Phone Number [address] [address] documented in this encounter Visit Diagnoses Diagnosis Frequency of urination- Primary Urinary frequency documented in this encounter Care Teams Personnel Supervisor Relationship Specialty Start Date End Date Dominique Holloway NP [address] [place] [address] PCP - General Nurse Practitioner 05/03/23 Pcp, Unknown 05/03/23 documented as of this encounter Additional Source Comments The information contained in this document represents components of the legal health record. It is not the complete legal health record.[facility]
--- OUTSIDE RECORDS SUMMARY | 2025-02-05 13:10 | XMS_ITS | Clinical Summary ---
Author Organization [facility] Address [address] [place] [address] Care Team Providers Care Cytotechnologist/Histotechnologist Name Role Phone Ronny Smith MD Primary Care Provider [phone] Source Comments PLEASE NOTE, if this patient [...] Infrarenal abdominal aortic aneurysm (AAA) without rupture ([facility] V24) 09/02/2024 Overview (09/02/2024): 08/14/24: CT abdomen + Pelvis w/o contrast incidental finding of 3 cm infrarenal AAaneurysm. ACR recommendation of 2-3 year eval with U/S or CT. Re imaging Due August 2027. High triglycerides 09/26/2023 Positive QuantiFERON-TB Gold test 09/13/2023 Overview (09/13/2023): Referred to TB clinic Nephrolithiasis 03/05/2023 Overview (05/28/2024): [facility] ER 03/13/2024 History of kidney stones requiring requiring multiple procedures (in [place], as well as [place], and here at [facility]) who is presenting with acute onset right [...] removal Name of surgeon: Dr. Harp - [facility] Date of procedure: 06/04/2023 Encounters Date Type Department Care Team Description 01/27/2025 Interim Notes [address] [address] Jm Kelley 01/22/2025 Interim Notes [address] [address] Jm Kelley 01/22/2025 Interim Notes [address] [address] Jm Kelley 01/21/2025 11:00 AM EDT Office Visit [address] [address] Samira, MYLES Downey Rufaida 01/15/2025 Interim Notes [address] [address] JefferySiigfredo vyass 01/12/2025 Results Follow-Up [address] [address] Ayse Mccracken NP 01/08/2025 11:00 AM EDT Office Visit [id number] [place] [address] Ayse Mccracken NP Alqaisy, Rufaida 12/29/2024 9:40 AM EDT Office Visit [facility] [address] [place] [address] Eneida Palomares DDS from Last 3 Months [...] Description 02/17/2025 4:20 PM EDT Office Visit [facility] [address] [place] [address] Francisco Frias, MIREYAS [address] [place] [address] 02/25/2025 9:20 AM EDT Office Visit [facility] [address] [place] [phone] Manuel Kidd PA-C [address] [place] [address] Health Maintenance Due Date Last Done Comments [...] 024, 03/05/2023 Imm-Hepatitis B Completed 09/25/2023, 06/12/2023 [id number] Completed 03/11/2024, 05/15, 03/07/2021, Additional history exists [...] SCREEN NEGATIVE NEGATIVE 01/26/2025 10:56 AM EDT [facility] [place] [facility] Blood Blood / Unknown 01/21/2025 1 1:42 AM EDT 01/22/2025 3:48 AM EDT Narrative [email or web address] - 01/26/2025 10:57 AM EDT FASTING:NO YASH [...] Negative . International Consensus on YASH Patterns (https://doi.org/10.1515/dmkp-0648-9338) . For additional information, please refer to http://education.The Easou Technology.Widevine Technologies/faq/SLQ466 (This link is being provided for informational/ educational purposes only.) . Shayan Hogan PA-C LAB - BLOOD DRAW Final Result [facility] [address] [place] [address], [facility] [address] [address] * HIV 1/2 AG & AB W/RFLX (4TH GEN) Routine (01/21/2025 11:42 AM EDT) Only the most recent of2 resultswithin the time period is included. HIV Screen Final HIV NEGATIVE 01/22/2025 5:00 AM EDT [facility] HIV AG/AB, 4TH GEN NON-REACTIVE NON-REACT IRAJ 01/22/2025 5:00 AM EDT [facility] Blood Blood / Unknown 01/21/2025 1 1:42 AM EDT 01/22/2025 3:38 AM EDT [facility] - 01/22/2025 5:07 AM EDT FASTING:NO HIV-1 antigen and HIV-1/HIV-2 antibodies were not detected. There is no laboratory evidence of HIV infection. us Shayan Hogan PA-C LAB - BLOOD DRAW Final Result [email or web address] [address] [address], [facility] [address] [address] * ACUTE HEPATITIS PANEL W/RFLX Routine (01/21/2025 11:42 AM EDT) Pathologist [facility] HEPATITIS A IGM ANTIBODY NON-REACT IRAJ NON-REACT IRAJ 01/22/2025 5:00 AM EDT [facility] HEPATITIS B SURFACE ANTIGEN NON-REACT IRAJ NON-REACT IRAJ 01/22/2025 4:59 AM EDT [facility] HEPATITIS B CORE IGM ANTIBODY NON-REACT IRAJ NON-REACT IRAJ 01/22/2025 5:00 AM EDT [facility] HEPATITIS C ANTIBODY NON-REACT IRAJ NON-REACT IRAJ 01/22/2025 5:00 AM EDT [facility] Blood Blood / Unknown 01/21/2025 1 1:42 AM EDT 01/22/2025 3:36 AM EDT [facility] - 01/22/2025 5:07 AM EDT FASTING:NO . HCV antibody was non-reactive. There is no laboratory evidence of HCV infection. . In most cases, no further action is required. However, if recent HCV exposure is suspected, a test for HCV RNA (test code 92510) is suggested. . For additional information please refer to http://Looxcie.Loans On Fine Art/faq/RMI44f6 (This link is being provided for informational/ educational purposes only.) . . For additional information, please refer to http://Looxcie.Lo[employer]/faq/OBE602 (This link is being provided for informational/ educational purposes only.) . Shayan MIRANDA-C LAB - BLOOD DRAW Final Result Performing Organization Address City/[facility]/ZIP Co de Phone Number [email or web address] [address] [address], [place], [place] [facility] [address] [address] * CREATININE KINASE ISOENZYMES W/CK TOTAL Routine [...] 1:42 AM EDT 01/23/2025 3:07 PM EDT [facility] - 01/26/2025 12:44 PM EDT FASTING:NO FASTING:NO Normal isoenzyme pattern with a normal total activity. us Shayan Hogan RUTH-Juan LAB - BLOOD DRAW Final Result Performing Organization Address City/[facility]/ZIP Co de Phone Number [employer] [address] [place], [place] , [place] [email or web address]/STAPLES DxNATILLY [address] [place], [place] * RHEUMATOID FACTOR QUANTITATIVE Routine (01/21/2025 11:42 AM EDT) RHEUMATOID FACTOR <10 <14 IU/mL 01/22/2025 5:08 AM EDT [facility] Blood Blood / Unknown 01/21/2025 1 1:42 AM EDT 01/22/2025 3:[address] [facility] - 01/22/2025 5:17 AM EDT FASTING:NO [facility]-C LAB - BLOOD DRAW Final Result Performing Organization Address [facility] Co de Phone Number [facility] [address] [address], [facility] [address] [address] * C-REACTIVE PROTEIN Routine (01/21/2025 11:42 AM EDT) Pathologist [facility] C-REACTIVE PROTEIN 6.4 <8.0 mg/L 01/22/2025 5:08 AM EDT [employer] [facility] Blood Blood / Unknown 01/21/2025 1 1:42 AM EDT 01/22/2025 3:38 AM EDT [facility] - 01/22/2025 5:17 AM EDT FASTING:NO Shayan [facility]-C LAB - BLOOD DRAW Final Result Performing Organization Address [facility] de Phone Number [facility] [address] [address], [facility] [address] [address] * (ABNORMAL) BLOOD COUNT COMPLETE AUTOMATED Routine (01/21/2025 11:42 AM EDT) Only the most recent of2 resultswithin the time period is included. Pathologist [facility] WHITE BLOOD CELL COUNT 8.8 3.8 - 10.8 Thousand/ uL 01/22/2025 4:31 AM EDT [facility] RED BLOOD CELL COUNT 5.79 4.20 - 5.80 Million/u L 01/22/2025 4:31 AM EDT [employer] [facility] HEMOGLOBIN 17.2(H) 13.2 - 17.1 g/dL 01/22/2025 4:31 AM EDT [employer] [facility] HEMATOCRIT 51.6(H) 38.5 - 50.0 % 01/22/2025 4:31 AM EDT [employer] [facility] MCV 89.1 80.0 - 100.0 fL 01/22/2025 4:31 AM EDT [facility] MCH 29.7 27.0 - 33.0 pg 01/22/2025 4:31 AM EDT [employer] [facility] MCHC 33.3 32.0 - 36.0 g/dL 01/22/2025 4:31 AM EDT [employer] [facility] RDW 13.5 11.0 - 15.0 % 01/22/2025 4:31 AM EDT [facility] PLATELET COUNT 226 140 - 400 Thousand/ uL 01/22/2025 4:31 AM EDT [employer] [facility] MPV 9.3 7.5 - 12.5 fL 01/22/2025 4:31 AM EDT [employer] [facility] Blood Blood / Unknown 01/21/2025 1 1:42 AM EDT 01/22/2025 3:20 AM EDT Narrative [email or web address] - 01/22/2025 4:33 AM EDT FASTING:NO For adults, a slight decrease in the calculated MCHC value (in the range of 30 to 32 g/dL) is most likely not clinically significant; however, it should be interpreted with caution in correlation with other red cell parameters and the patient's clinical condition. us Shayan Hogan PA-C LAB - BLOOD DRAW Final Result [email or web address] [address] [address], [facility] [address] [address] * COMPREHENSIVE METABOLIC PANEL Routine (01/21/2025 11:42 AM EDT) GLUCOSE 93 65 - 139 mg/dL 01/22/2025 6:00 AM EDT [employer] [facility] UREA NITROGEN (BUN) 16 7 - 25 mg/dL 01/22/2025 6:00 AM EDT [employer] [facility] CREATININE (blood) 0.79 0.60 - 1.29 mg/dL 01/22/2025 6:00 AM [employer] EGFR 113 > OR = 60 mL/min/1. 73m2 01/22/2025 6:00 AM [employer] BUN/CREATININE RATIO SEE NOTE: 6 - 22 (calc) 01/22/2025 6:00 AM [employer] SODIUM 138 135 - 146 mmol/L 01/22/2025 6:00 AM [employer] POTASSIUM 4.4 3.5 - 5.3 mmol/L 01/22/2025 6:00 AM [employer] CHLORIDE 106 98 - 110 mmol/L 01/22/2025 6:00 AM [employer] CARBON DIOXIDE 24 20 - 32 mmol/L 01/22/2025 6:00 AM [employer] CALCIUM 9.3 8.6 - 10.3 mg/dL 01/22/2025 6:00 AM [employer] [facility] PROTEIN, TOTAL 7.4 6.1 - 8.1 g/dL 01/22/2025 6:00 AM [employer] ALBUMIN 4.6 3.6 - 5.1 g/dL 01/22/2025 6:00 AM [employer] GLOBULIN 2.8 1.9 - 3.7 g/dL (calc) 01/22/2025 6:00 AM [employer] ALBUMIN/GLOBULI N RATIO 1.6 1.0 - 2.5 (calc) 01/22/2025 6:00 AM [employer] BILIRUBIN, TOTAL 0.5 0.2 - 1.2 mg/dL 01/22/2025 6:00 AM [employer] [facility] ALKALINE PHOSPHATASE 98 36 - 130 U/L 01/22/2025 6:00 AM [employer] [facility] AST 21 10 - 40 U/L 01/22/2025 6:00 AM [employer] [facility] ALT 26 9 - 46 U/L 01/22/2025 6:00 AM [employer] [facility] Blood Blood / Unknown 01/21/2025 1 1:42 AM EDT 01/22/2025 3:[address] [facility] - 01/22/2025 6:31 AM EDT FASTING:NO . Non-fasting reference interval . Not Reported: BUN and Creatinine are within reference range. . Shayan Hogan PA-C LAB - BLOOD DRAW Final Result Performing Organization Address [facility] Co de Phone Number [facility] [address] [address], [facility] [address] [address] * RPR (DIAGNOSIS) WITH REFLEX TO TITER AND CONFIRMATORY TESTING Routine (01/08/2025 12:06 PM EDT) [facility] RPR (DX) W/REFL TITER AND CONFIRMATORY TESTING NON-REACT IRAJ NON-REACT IRAJ 01/10/2025 4:47 PM EDT [facility] Serum Blood / Unknown 01/08/2025 1 2:06 PM EDT 01/09/2025 2:00 AM EDT Narrative [email or web address] [facility] - 01/10/2025 4:51 PM EDT FASTING:NO . No laboratory evidence of syphilis. If recent exposure is suspected, submit a new sample in 2-4 weeks. . Ayse Mccracken NP LAB - BLOOD DRAW Final Resul t Performing Organization Address [facility] Co de Phone Number [facility] [address] [address], [facility] [address] [address] * (ABNORMAL) LIPIDS W RFLX TO DIRECT LDL (03/20/2024 9:03 AM EST) [facility] CHOLESTEROL, TOTAL 256(H) <200 mg/dL [employer] [facility] HDL CHOLESTEROL 28(L) > OR = 40 mg/dL [facility] TRIGLYCERIDES 423(H) <150 mg/dL [facility] Comment: If a non-fasting specimen was collected, consider repeat triglyceride testing on a fasting specimen if clinically indicated. Sharonda et al. J. of Clin. Lipidol. 2015;9:129-169. LDL-CHOLESTEROL See Note [facility] Comment: LDL cholesterol not calculated. Triglyceride levels [...] LDL-C. Giovani PRESLEY et al. JOHNNIE. 2013;310(19): 4556-7356 (http://education.Bungolow/faq/OJN369) CHOL/HDLC RATIO 9.1(H) <5.0 (calc) [facility] NON-HDL CHOLESTEROL 228(H) <130 mg/dL (calc) [facility] Comment: For patients with diabetes plus 1 major ASCVD risk factor, treating to a non-HDL-C goal of <100 mg/dL (LDL-C of <70 mg/dL) is considered a therapeutic option. Blood Blood / Unknown 03/20/2024 9 :03 AM EST 03/20/2024 9:04 AM EST Narrative [facility] - 2024 11:15 AM EST FASTING:YES Ronny Smith MD LAB - BLOOD DRAW Final Result [facility] [address] [place] [address], [facility] [address] [place] [phone] from Last 3 Months or Most Recently Relevant to Health Maintenance [place] [address] [place] Care Teams Cytotechnologist/Histotechnologist Relationship Specialty Start Date End Date Ronny Smith MD [address] [place] [address] PCP - General Internal Medicine 09/25/23
--- OUTSIDE RECORDS SUMMARY | 2025-02-05 13:10 | XMS_ITS | Encounter Summary ---
Author Organization [facility] Address [address] [place] [address] Phone Care Team Providers Care Administrative Manager Name Role Phone Dominique Holloway PROJECT DEVELOPER Primary Care Provider Pcp, Unknown Unavailable Unavailable Encounter Details Date Type Department Care Team (Late st Contact Info) Description 06/04/2023 Procedure [facility] [address] [place] [address] Social History Tobacco Use Types Packs/Day Years [...] on filedocumented in this encounter Care Teams Administrative Manager Relationship Specialty Start Date End Date Dominique Holloway NP [id number] PCP - General Nurse Practitioner 05/03/23 Pcp, Unknown 05/03/23 documented as of this encounter Additional Source Comments The information contained in this document represents components of the legal health record. It is not the complete legal health record.[facility]
--- OUTSIDE RECORDS SUMMARY | 2025-02-05 13:10 | XMS_ITS | Clinical Summary ---
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 It is not the complete legal health record.[facility]
--- OUTSIDE RECORDS SUMMARY | 2025-02-05 13:10 | XMS_ITS | Clinical Summary ---
Author Organization [facility] ity Address [address] [place] [address] Care Team Providers Care Service Cleaner Name Role Phone Unavailable Primary Care Provider Unavailabl e Social History Tobacco Use Types Packs/Day Years Used Date Smoking Tobacco: Never Assessed Sex and Gender Information Value Date Recorded Sex Assigned at Not on file Legal Sex Male 8:23 PM EST Gender Identity Not on file Sexual Orientation Not on file Plan of Treatment Health Maintenance Due Date Last Done Comments DTaP,Tdap,and Td Vaccines (1 - Tdap) 2000 Hepatitis B Vaccines (1 of 3 - 19+ 3-dose series) 2000 Cholesterol Screening (Lipid Panel) 06/07/2023 HIV Screening 06/07/2023 Hepatitis C Screening 06/07/2023 Social Influencers of Health Screening 06/07/2023 Depression Screening 05/13/2024 COVID-19 Vaccine (2023-2 5 season) 2025 Influenza Vaccine (#1) 2025 HIB Vaccines Aged Out No longer eligi ble based on patient's age to complete this topic HPV Vaccines Aged Out No longer eligi ble based on patient's age to complete this topic Hepatitis A Vaccines Aged Out No long er eligible based on patient's age to complete this topic IPV Vaccines Aged Out No longer eligi ble based on patient's age to complete this topic MMR Vaccines Aged Out No longer eligi ble based on patient's age to complete this topic Meningococcal ACWY Vaccine Aged Out N o longer eligible based on patient's age to complete this topic Meningococcal B Vaccine Aged Out No l onger eligible based on patient's age to complete this topic Pneumococcal Vaccine: Pediat rics (0 to 5 Years) and At-Risk Patients (6 to 49 Years) Aged Out No longer eligible b ased on patient's age to complete this topic RSV Immunization Patients Un ava 20 months Aged Out No longer eligible b ased on patient's age to complete this topic Varicella Vaccines Aged Out No longer eligible based on patient's age to complete this topic
--- OUTSIDE RECORDS SUMMARY | 2025-02-05 13:10 | XMS_ITS | Encounter Summary ---
Author Organization [facility] Address [address] [place] [address] Phone Care Team Providers Care Key Filer Name Role Phone Dominique Holloway AIRPORT OPERATIONS DUTY MANAGER Primary Care Provider Pcp, Unknown Unavailable Unavailable Encounter Details Date Type Department Care Team (Late st Contact Info) Description 08/07/2023 Transcribe Orders [facility] [address] [address] Pcp, Unknown Social History Tobacco Use Types Packs/Day Years Used Date Smoking Tobacco: Every Day Cigarettes 1 20 Alcohol Use Standard Drinks/Week Comments Not Currently 0 (1 standard drink = 0.6 oz pur e alcohol) Education Answer Date Recorded Are you interested in more education? Not on vreena e 05/30/2023 Are you concerned about learning? [...] on filedocumented in this encounter Care Teams Key Filer Relationship Specialty Start Date End Date Dominique Holloway NP [facility] [id number] PCP - General Nurse Practitioner 05/03/23 Pcp, Unknown 05/03/23 documented as of this encounter Additional Source Comments The information contained in this document represents components of the legal health record. It is not the complete legal health record.[facility]
--- OUTSIDE RECORDS SUMMARY | 2025-02-05 13:10 | XMS_ITS | Encounter Summary ---
Author Organization [facility] Address [address] [place] [address] Phone Care Team Providers Care Brewery Technician Name Role Phone Dominique Holloway POPULATION HEALTH MANAGER Primary Care Provider Pcp, Unknown Unavailable Unavailable Encounter Details Date Type Department Care Team (Late st Contact Info) Description 06/04/2023 Procedure Pass [facility] Periop [address] [place] [address] Social History Tobacco Use Types Packs/Day Years [...] on filedocumented in this encounter Care Teams Brewery Technician Relationship Specialty Start Date End Date Dominique Holloway NP [address] [place] [address] PCP - General Nurse Practitioner 05/03/23 Pcp, Unknown 05/03/23 documented as of this encounter Additional Source Comments The information contained in this document represents components of the legal health record. It is not the complete legal health record.[facility]
== END 2025-02-05 11:16 | disposition home or self-care (01) ==
LOC: HO.CT 11:15
PROVIDERS: Visit Provider Nurse Practitioner Family
DX: R10.9 Unspecified abdominal pain (principal); N20.0 Calculus of kidney
CPT/HCPCS: 74176

== ENCOUNTER → 2025-02-05 11:28 | Outpatient (BNV) | payer MEDICAID, SELFPAY | PROVIDERS: Visit Provider Radiology Diagnostic Radiology | DX: N20.0 Calculus of kidney (principal); I71.40 Abdominal aortic aneurysm, without rupture, unspecified | CPT/HCPCS: 74176 ==

== ENCOUNTER 2025-02-11 10:02 | Outpatient (AMB) | payer MEDICAID, SELFPAY ==
--- NOTE | 2025-02-11 10:21 | MHC.OFFVIS ---
Intake Visit Reasons: 2w CT Intake Note: patient presents today for: 2w/CT urology medications: tamsulosin blood thinners: none CT done: 02/05/25 Air Control/Anti Air Warfare Officer Required: Yes Air Control/Anti Air Warfare Officer Services: Air Control/Anti Air Warfare Officer Present Air Control/Anti Air Warfare Officer Name: Carmen [id number] Accompanied by: Self / Same As Patient Allergies No Known Allergies Allergy (Verified 02/11/25 11:15) Medication List - Last Reconciled 02/11/25 by HUGO Mejia acetaminophen 1,000 mg PO Q6H PRN cyclobenzaprine 5 mg PO TID PRN fenofibrate micronized 134 mg PO QAM oxycodone 5 mg PO Q6H PRN phenazopyridine 100 mg PO TID simvastatin 40 mg PO DAILY tamsulosin 0.4 mg PO DAILY HPI Comments Details: Mikey is a 44-year-old Korean speaking male patient of Dr. Herr. He has a past medical history of nephrolithiasis, hyperlipidemia and intrarenal abdominal aortic aneurysm. He presents to the office today for a follow up of his nephrolithiasis. Recent CT KUB results reviewed with the patient today 02/04 postsurgical changes are present anterior to the lower pole of the right kidney. There is a 4 x 8 mm calcification in the lower pole of the right kidney that is probably a stone but could represent dystrophic calcification. Abdominal aortic aneurysm measuring 3.5 cm. He discusses his longstanding history of nephrolithiasis since the age of [age] years old. He reports previously having multiple surgical interventions for nephrolithiasis to include ureteroscopy as well as lithotripsies in the past. He reports having had multiple surgical interventions for nephrolithiasis in his country [place] well as in [place]. He currently continues to experience bilateral flank pain right side greater than left. In office urinalysis results reviewed with the patient today. We discussed further interventions to include right-sided ureteroscopy versus surveillance monitoring risks and benefits of these interventions were discussed. All questions were answered. He denies incontinence, hematuria, dysuria, foul smelling urine, changes to urinary stream,fever, and or chills. He does report following up with vascular surgery for his history of abdominal aortic aneurysm. He otherwise offers no other issues or concerns at this time. [facility] Medical History (Updated 01/27/25 @ 14:48 by HUGO Mejia) Infrarenal abdominal aortic aneurysm (AAA) without rupture High triglycerides Positive QuantiFERON-TB Gold test Nephrolithiasis Review of Systems Const All systems reviewed & are unremarkable except as noted in HPI and below Physical Exam Const General: cooperative, comfortable, no acute distress, well developed, alert and awake Orientation/consciousness: patient oriented x3 Limitations: language barrier HEENT Head: Yes normal to inspection, Yes normocephalic and Yes atraumatic Ears: hearing grossly normal bilaterally Eyes General: appearance normal, both eyes and all related structures Neck Neck: Yes normal visual inspection and Yes trachea midline Chest Chest palpation & inspection: normal inspection of the chest Resp Effort & Inspection: normal respiratory effort and able to speak in complete sentences Cardio Rate: regular rate GI Inspection: Yes normal to inspection General: Yes no CVA tenderness Back/Spine/Pelvis Back: no CVA tenderness Skin General skin exam: no rashes or lesions noted Neuro General: patient oriented x3 Extrem General: Yes normal to inspection Psych Appearance: grossly normal and well kempt Mental Status: mental status grossly normal Speech and movement: Normal speech and movement present and Clear speech present Affect: normal affect Attitude: cooperative Thought process: Normal thought process present Thought content: Normal thought content present Insight: Fair insight present (Psych) Judgement: Fair judgement present (Psych) Results AMB Urinalysis, Automated UA Leukoctes 0 Gadiel/uL Last Edit by DULCE Montana on 02/11/25 10:40 UA Nitrite Last Edit by DULCE Montana on 02/11/25 10:40 UA Urobilinogen 0.2 mg/dL Last Edit by DULCE Montana on 02/11/25 10:40 UA Protein 0 mg/dL Last Edit by DULCE Montana on 02/11/25 10:40 UA pH 6.0 Last Edit by DULCE Montana on 02/11/25 10:40 UA Blood 0 Дмитрий/uL Last Edit by DULCE Montana on 02/11/25 10:40 UA Specific [place] 1.015 Last Edit by DULCE Montana on 02/11/25 10:40 UA Ketone Last Edit by DULCE Montana on 02/11/25 10:40 UA Bilirubin 0 mg/dL Last Edit by DULCE Montana on 02/11/25 10:40 UA Glucose 0 mg/dL Last Edit by DULCE Montana on 02/11/25 10:40 Results Reviewed Results Reviewed: Laboratory Last Values Urine pH (Auto) 6.0 02/11/25 10:39 Specific [place] (Auto) 1.015 02/11/25 10:39 Urine Protein (Auto) 0 mg/dL 02/11/25 10:39 Glucose (UA)(Auto) 0 mg/dL 02/11/25 10:39 Urine Blood (Auto) 0 Дмитрий/uL 02/11/25 10:39 Urine Bilirubin (Auto) 0 mg/dL 02/11/25 10:39 Urine Urobilinogen (Auto) 0.2 mg/dL 02/11/25 10:39 Leukocyte Esterase (Auto) 0 Gadiel/uL 02/11/25 10:39 Date of Service: 02/05/25 Procedure(s): CT kidney stone FINDINGS: LUNG BASES: The visualized lung bases are unremarkable. LIVER, GALLBLADDER, AND BILIARY TREE: The liver is normal in size, shape, and attenuation. No focal hepatic lesion or biliary ductal dilatation is present. The gallbladder is unremarkable with no evidence of radiopaque gallstones, gallbladder wall thickening, or obvious pericholecystic inflammatory changes. PANCREAS: Unremarkable. SPLEEN: Unremarkable. ADRENAL GLANDS: Unremarkable. KIDNEYS AND URETERS: There is focal high density with streak artifact anterior to the lower pole right kidney consistent with a surgical change. Just deep to this region, there is calcification measuring 4 x 8 mm probably representing a nonobstructing stone. Dystrophic calcification is not ruled out. There is no hydronephrosis and no stones in the ureters. BLADDER: Unremarkable. GASTROINTESTINAL TRACT: The small and large bowel are unremarkable. The appendix is unremarkable. ABDOMINAL WALL: Small umbilical hernia contains adipose tissue. There is a small fat-containing left inguinal hernia versus fatty spermatic cord. LYMPH NODES: Normal. VASCULAR: Just distal to the inferior mesenteric artery origin, there is fusiform dilation of a 4-5 cm segment of the distal abdominal aorta. The diameter measured 3.3 x 3.5 cm. Aneurysm terminates just prior to bifurcating into common iliac arteries. PELVIC VISCERA: Unremarkable. OSSEOUS STRUCTURES: Unremarkable. IMPRESSION: Postsurgical changes are present anterior to the lower pole right kidney. There is a 4 x 8 mm calcification in the lower pole of the left kidney that is probably a stone but could represent dystrophic calcification. Abdominal aortic aneurysm. There is fusiform dilation of the abdominal aorta distal to the inferior mesenteric artery origin measuring up to 3.3 x 3.5 cm. Assessment & Plan Assessment & Plan (1) Flank pain: Code(s): R10.9 - Unspecified abdominal pain Category: Medical (2) Nephrolithiasis: Code(s): N20.0 - Calculus of kidney Category: Medical Plan: Ureteroscopy We discussed the nature of the decision and reasonable alternatives for performing ureteroscopy. Options such as medical therapy were discussed. Interventions include chemical dissolution, ESWL, ureteroscopy with laser lithotripsy and stent placement, PCNL. The relative uncertainties and benefits related to each alternate procedure were adequately discussed. General surgical risks including, but not limited to - pain, bleeding, infection, myocardial infarction, pulmonary embolus, deep vein thrombosis and cerebrovascular accident which may result in further hospitalization were discussed.? Full disclosure of the procedure as well as all major risks, benefits and complications were discussed including but not limited to damage to the urethra, bladder and kidney infection, damage to the ureter, stent migration or malposition, scarring to the renal pelvis, remnant stone fragments, subsequent stone passage with need for secondary procedures. The overall secondary procedure rate is approximately 10-15%.? The overall clearance rate is approximately 90-95%. Success of the procedure in the short-term does not necessarily guarantee that long-term success will be maintained. Suitable follow up will need to be maintained. The patient showed understanding of discussion and wishes to proceed with - cystoscopy, retrograde, ureteroscopy, possible lithotripsy/stone basketing and stent on the right side Plan In office urinalysis results with the patient today; as noted above. Recent CT KUB results reviewed with the patient today; as noted above. We discussed potential causes of right-sided flank pain We discussed further interventions to include right-sided ureteroscopy versus surveillance monitoring; risks and benefits were discussed at length He denies any bothersome urinary issues. He reports be happy with current voiding parameters. All questions were answered. Will schedule for right-sided ureteroscopy; cystoscopy, retrograde, ureteroscopy, possible lithotripsy/stone basketing and stent on the right side. Follow-up per doctor's orders; or sooner with any issues, concerns, and or questions. Orders: Orders AMB Urinalysis Automated Today Z13.9 - Encounter for screening, unspecified Patient Instructions: The patient had an opportunity to ask questions regarding the treatment plan. All questions were answered. Physical exam, labs, and imaging were discussed and reviewed in detail. As well as risks, benefits, and discussion of treatment choices. No major barriers to understanding were identified. The patient expressed understanding and agreement with the above treatment plan. The patient was made aware they should contact our office by phone for worsening of their current condition, the appearance of new symptoms, or with any questions or concerns. Compliance is encouraged with any medications and follow up testing that is ordered. It is a privilege to be allowed the opportunity to participate in? your urological care.? Again, if you have any questions or concerns If you have any questions or concerns please do not hesitate to contact me. The office is [phone]. This note is constructed using voice recognition software. While every effort has been made to ensure accuracy expense clerk errors may have been included. Yours sincerely, HUGO Mejia Coding Level of Care Code Est Pt Level 4 (55260) Diagnoses Flank pain R10.9 Nephrolithiasis N20.0
--- OUTSIDE RECORDS SUMMARY | 2025-02-11 11:20 | XMS_ITS | Encounter Summary ---
Author Organization [facility] Address [address] [place] [address] Care Team Providers Care Gas Operations Superintendent Name Role Phone Ronny Smith MD Primary Care Provider [phone] Encounter Details Date Type Department Care Team (Late st Contact Info) Description 01/12/2025 Results Follow-Up [facility] [address] [place] [address] Ayse Mccracken, [place] [address] [facility] [place], [place] [id number] Social History Tobacco Use Types Packs/Day Years [...] 02/17/2025 4:20 PM EDT Office Visit [facility] Jose Cavazos [address] [place] [phone] Francisco Frias, MIREYAS [address] [place] [address] 02/25/2025 9:20 AM EDT Office Visit [facility] Jose [address] [place] [phone] Manuel Kidd PA-C [address] [place] [address] documented as of this encounter Visit Diagnoses Not on filedocumented in this encounter Additional Health Concerns Assessment Noted Time PHQ-9 Depression Total Score: 0 01/09/20 25 11:04 AM PDT documented as of this encounter Care Teams Gas Operations Superintendent Relationship Specialty Start Date End Date Ronny Smith MD [address] [place] [address] PCP - General Internal Medicine 09/25/23 documented as of this encounter
--- OUTSIDE RECORDS SUMMARY | 2025-02-11 11:20 | XMS_ITS | Encounter Summary ---
Author Organization [facility] Address [address] [place] [address] Phone Care Team Providers Care Wire Coater Name Role Phone Dominique Holloway FLOORING INSTALLER Primary Care Provider [phone] Pcp, Unknown Unavailable Unavailable Encounter Details Date Type Department Care Team (Late st Contact Info) Description 06/04/2023 Procedure Pass [facility] [address] [place] [address] Social History Tobacco Use Types Packs/Day Years [...] on filedocumented in this encounter Care Teams Wire Coater Relationship Specialty Start Date End Date Dominique Holloway NP [facility] [place] [id number] PCP - General Nurse Practitioner 05/03/23 Pcp, Unknown 05/03/23 documented as of this encounter Additional Source Comments The information contained in this document represents components of the legal health record. It is not the complete legal health record.[facility]
--- OUTSIDE RECORDS SUMMARY | 2025-02-11 11:20 | XMS_ITS | Clinical Summary ---
Author Organization [facility] ity Address [address] [place] [address] Care Team Providers Care Retail And Restaurant Name Role Phone Unavailable Primary Care Provider [...] of 3 - 19+ 3-dose series) 2000 HPV Vaccines (1 - 3-dose SCD M series) 2008 Cholesterol Screening (Lipid Panel) 06/07/2023 HIV Screening 06/07/2023 Hepatitis C Screening 06/07/2023 Social Influencers of Health Screening 06/07/2023 Depression Screening 05/13/2024 COVID-19 Vaccine (1 - 2023-2 5 season) 2025 Influenza Vaccine (#1) 2025 RSV Immunization Adult Patie nts (1 - 1-dose 75+ series) 2056 HIB Vaccines Aged Out No longer eligi [...]
--- OUTSIDE RECORDS SUMMARY | 2025-02-11 11:20 | XMS_ITS | Encounter Summary ---
Author Organization [facility] Address [address] [place] [address] Phone Care Team Providers Care Feed Handler Name Role Phone JewelDominique monahan FIELD CANE SCALE CLERK Primary Care Provider [phone] Pcp, Unknown Unavailable Unavailable Encounter Details Date Type Department Care Team (Latest Contact Info) Description 05/30/2023 Transcribe Orders [facility] Specimen Processing [address] [place] [address] Main Peterson MD [address] [facility] [place] [address] [email or web address] Frequency of urination (Primary Dx) Social History [...] PM EST) WBC 21-49(A) NONE SEEN /hpf [facility] RBC 50-100(A) NONE SEEN /hpf [facility] URINE EPITHELIAL 0-4(A) NONE SEEN [facility] MUCUS Trace(A) NONE SEEN /hpf [facility] BACTERIA 1+(A) NONE SEEN /hpf [facility] YEAST 1+(A) NONE SEEN /hpf [facility] 05/30/2023 1:53 PM EST 05/30/2023 1:57 PM EST Main Peterson MD URINE ORDERABLES Final Res ult Performing Organization Address [facility] Co de Phone Number [address] [address] * (ABNORMAL) Urinalysis (05/30/2023 1:53 PM EST) COLOR Yellow Yellow [facility] CLARITY CLOUDY [facility] GLUCOSE Negative Negative [facility] BILI Negative Negative [facility] KETONES Negative Negative [facility] SPECIFIC GRAVITY 1.015 1.005 - 1.030 [facility] BLOOD 3+(A) Negative [facility] PH 6.0 5.0 - 8.0 [facility] Protein-UA 1+(A) Negative [facility] NITRITE Negative Negative [facility] Leukocyte esterase, ur 3+(A) Negative [facility] Urine (Urine) 05/30/2023 1:5 3 PM EST 05/30/2023 1:57 PM EST Main Peterson MD URINE ORDERABLES Final Res ult Performing Organization Address City/[facility]/ZIP Co de Phone Number [address] [address] * (ABNORMAL) Urine culture (05/30/2023 1:53 PM EST) Special Requests None 05/30/2023 1:53 PM EST [facility] Urine Culture 10,000 to 100,000 colony forming units per mL YEAST(A) 06/01/2023 9:52 AM EST [facility] Urine (Urine) 05/30/2023 1:5 3 PM EST 05/30/2023 1:57 PM EST Comment:CATHETER Main Peterson MD MICROBIOLOGY - GENERAL ORD ERABLES Final Result Performing Organization Address [facility]/ZIP Co de Phone Number [address] [address] documented in this encounter Visit Diagnoses Diagnosis Frequency of urination- Primary Urinary frequency documented in this encounter Care Teams Feed Handler Relationship Specialty Start Date End Date Dominique Holloway NP [address] [place] [address] PCP - General Nurse Practitioner 05/03/23 Pcp, Unknown 05/03/23 documented as of this encounter Additional Source Comments The information contained in this document represents components of the legal health record. It is not the complete legal health record.[facility]
--- OUTSIDE RECORDS SUMMARY | 2025-02-11 11:20 | XMS_ITS | Encounter Summary ---
Author Organization [facility] Address [address] [place] [address] Phone Care Team Providers Care Director Of Housing And Energy Services Name Role Phone Dominique Holloway ROOF TRUSS MACHINE TENDER Primary Care Provider Pcp, Unknown Unavailable Unavailable Encounter Details Date Type Department Care Team (Late st Contact Info) Description 06/04/2023 Procedure Pass [facility] [address] [place] [address] Social History Tobacco Use Types Packs/Day Years [...] on filedocumented in this encounter Care Teams Director Of Housing And Energy Services Relationship Specialty Start Date End Date Dominique Holloway NP [address] [place] [address] PCP - General Nurse Practitioner 05/03/23 Pcp, Unknown 05/03/23 documented as of this encounter Additional Source Comments The information contained in this document represents components of the legal health record. It is not the complete legal health record.[facility]
--- OUTSIDE RECORDS SUMMARY | 2025-02-11 11:20 | XMS_ITS | Clinical Summary ---
Author Organization [facility] Address [address] [place] [address] Care Team Providers Care Media Clerk Name Role Phone Unavailable Primary Care Provider Unavailabl e Encounters Date Type Department Care Team Description 12/01/2024 Population Health Risk Score [facility] Care [facility] (C3) Department [address] [facility] [address] [place] [address] Provider, Population Health Generic from [...]
--- OUTSIDE RECORDS SUMMARY | 2025-02-11 11:21 | XMS_ITS | Clinical Summary ---
Author Organization [facility] Address [address] [place] [address] Care Team Providers Care Engineering Drawings Checker Name Role Phone Ronny Smith MD Primary Care Provider [phone] Source Comments PLEASE NOTE, if this patient [...] tablet by mouth daily. 30 Tablet 2 3 Active nicotine, polacrilex, (NICORETTE) 2 mg gumIndications:Smo reilly as needed for cravings - Weeks 1-6: Chew 1 piece of gum every 1-2 hours. Weeks 7-9: Chew 1 piece of gum every 2-4 hours. Weeks 10-12: Chew 1 piece of gum every 4-8 hours. (minimum: 9 pieces/day for first 6 weeks; maximum: 24 pieces/day during entire regimen 110 Each 3 4 Active fenofibrate micronized (LOFIBRA) 134 mg capsuleIndications :High triglycerides Take 1 Capsule by mouth once daily with breakfast 90 Capsule 2 4 Active omega-3 acid ethyl esters (LOVAZA) 1 gram capsuleIndications :High triglycerides Take 2 Capsules by mouth 2 (two) times daily 360 Capsule 4 Active simvastatin (ZOCOR) 40 mg tabletIndications: Hyperlipidemia, unspecified hyperlipidemia type Take 1 Tablet by mouth once daily 90 Tablet 3 4 Active hydrocortisone acetate (PROCTOCORT) 10 % (80 mg) rectal foamIndications:Re ctal bleeding Place 1 Applicator rectally 2 (two) times daily 15 g 5 Active phenazopyridine (PYRIDIUM) 100 mg tabletIndications: Dysuria Take 1 Tablet by mouth 3 (three) times daily with meals. 9 Tablet 5 Active cyclobenzaprine (FLEXERIL) 5 mg tablet Take 1 Tablet by mouth 3 (three) times daily as needed for muscle spasms. 15 Tablet 5 Active acetaminophen (TYLENOL) 500 mg tabletIndications: Dysuria,Nephrolith iasis Take 2 Tablets by mouth every 6 (six) hours as needed for pain. 30 Tablet 5 Active tamsulosin (FLOMAX) 0.4 mg 24 hr capsuleIndications :Nephrolithiasis Take 2 Capsules by mouth once daily. 180 Capsule 5 Active oxyCODONE (ROXICODONE) 5 mg tabletIndications: Rectal bleeding,Anal fistula Take 1 Tablet by mouth every 6 (six) hours as needed for pain. Max Daily Amount: 20 mg 20 Tablet 5 Active GAVILAX 17 gram/dose powder Take 17 g by mouth once daily. Active Active Problems Problem Noted Date Diagnosed Date Anal fistula 10/21/2024 Rectal or anal pain 09/25/2024 Infrarenal abdominal aortic aneurysm (AAA) witho ut rupture 09/02/2024 Overview (09/02/2024): 08/14/24: CT abdomen + Pelvis w/o contrast incidental finding of 3 cm infrarenal AAaneurysm. ACR recommendation of 2-3 year eval with U/S or CT. Re imaging Due August 2027. High triglycerides 09/26/2023 Positive QuantiFERON-TB Gold test 09/13/2023 Overview (09/13/2023): Referred to TB clinic Nephrolithiasis 03/05/2023 Overview (05/28/2024): [facility] 03/13/2024 History of kidney stones requiring requiring multiple procedures (in [place], as well as [place], and here at [facility]) who is presenting with acute onset [...] removal Name of surgeon: Dr. Harp - [facility] Date of procedure: 06/04/2023 Encounters Date Type Department Care Team Description 01/27/2025 Interim Notes [address] [phone] Jm Kelley 01/22/2025 Interim Notes [address] [phone] Jm Kelley 01/22/2025 Interim Notes [address] [phone] Jm Kelley 01/21/2025 11:00 AM EDT Office Visit [address] [phone] Shayan Hogan PA-C Alqaisy, Rufaida 01/15/2025 Interim Notes [address] [phone] Talisha Méndez 01/12/2025 Results Follow-Up [address] [phone] Ayse Mccracken NP 01/08/2025 11:00 AM EDT Office Visit [address] [phone] Ayse Mccracken NP Alqaisy, Rufaida 12/29/2024 9:40 AM EDT Office Visit [address] [phone] Eneida Palomares DDS from Last 3 Months [...] Description 02/17/2025 4:20 PM EDT Office Visit [facility] [address] [place] [phone] Francisco Frias, DDS [address] [place] [address] 02/25/2025 9:20 AM EDT Office Visit [facility] [address] [place] [phone] Manuel Kidd PA-C [address] [place] [address] Health Maintenance Due Date Last Done Comments Dental FMX/Pano 1981 Imm-HPV (1 - 3-dose SCDM series) 2008 Dental Examination 08/09/2024 08/08/2023 Imm-Influenza (#1) 2025 03/11/2024, 03/05/2023 Tobacco Cessation Counseling (#1) 03/19/2025 024 Lipid Screening 03/20/2025 03/20/2024, 1112/2023, 09/25/2023, Additional history exists Anxiety Screening 05/28/2025 05/28/2024 Annual Wellness (Adult): Indicated (All Coverage) 01/08/2026 01/08/2025 Diabetes Screening 01/21/2026 01/21/2025, 0 10/16/2024, 06/07/2023, Additional history exists Hypertension Screening (#1) 01/21/2026 Imm-DTaP/Tdap/Td (3 - Td or Tdap) 06/12/2033 024, 03/05/2023 Imm-Hepatitis B Completed 09/25/2023, 06/12/2023 [id number] Completed 03/11/2024, 05/15, 03/07/2021, Additional history exists Alcohol and Drug Screen Completed 05/28/19 25, 09/25/2023, 03/05/2023 Depression Annual Screen Completed 01/08/2025, [...] SCREEN NEGATIVE NEGATIVE 01/26/2025 10:56 AM EDT [facility] Blood Blood / Unknown 01/21/2025 1 1:42 AM EDT 01/22/2025 3:48 AM EDT [employer] - 01/26/2025 10:57 AM EDT FASTING:NO YASH [...] Negative . International Consensus on YASH Patterns (https://doi.org/10.1515/qwuh-4103-5044) . For additional information, please refer to http://education.Zenprise/faq/BPH709 (This link is being provided for informational/ educational purposes only.) . Shayan Hogan PA-C LAB - BLOOD DRAW Final Result Performing Organization Address [facility] de Phone Number [employer] [address] [place] [address], [employer] [address] [place] [phone] * HIV 1/2 AG & AB W/RFLX (4TH GEN) Routine (01/21/2025 11:42 AM EDT) Only the most recent of2 resultswithin the time period is included. HIV Screen Final HIV NEGATIVE 01/22/2025 5:00 AM EDT [employer] [employer] HIV AG/AB, 4TH GEN NON-REACTIVE NON-REACT IRAJ 01/22/2025 5:00 AM EDT [employer] Blood Blood / Unknown 01/21/2025 1 1:42 AM EDT 01/22/2025 3:38 AM EDT [employer] - 01/22/2025 5:07 AM EDT FASTING:NO HIV-1 antigen and HIV-1/HIV-2 antibodies were not detected. There is no laboratory evidence of HIV infection. Shayan [employer] [facility] LAB - BLOOD DRAW Final Result Performing Organization Address [facility]/ZIP Co de Phone Number [facility] [address] [address], [facility] [address] [address] * ACUTE HEPATITIS PANEL W/RFLX Routine (01/21/2025 11:42 AM EDT) [facility] HEPATITIS A IGM ANTIBODY NON-REACT IRAJ NON-REACT IRAJ 01/22/2025 5:00 AM EDT [facility] HEPATITIS B SURFACE ANTIGEN NON-REACT IRAJ NON-REACT IRAJ 01/22/2025 4:59 AM EDT [facility] HEPATITIS B CORE IGM ANTIBODY NON-REACT IRAJ NON-REACT IRAJ 01/22/2025 5:00 AM EDT [facility] HEPATITIS C ANTIBODY NON-REACT IRAJ NON-REACT IRAJ 01/22/2025 5:00 AM EDT [facility] Blood Blood / Unknown 01/21/2025 1 1:42 AM EDT 01/22/2025 3:36 AM EDT Narrative [facility] - 01/22/2025 5:07 AM EDT FASTING:NO . HCV antibody was non-reactive. There is no laboratory evidence of HCV infection. . In most cases, no further action is required. However, if recent HCV exposure is suspected, a test for HCV RNA (test code 72069) is suggested. . For additional information please refer to http://SpiceCSM.Samba Networks/faq/EMI64p2 (This link is being provided for informational/ educational purposes only.) . . For additional information, please refer to http://SpiceCSM.Samba Networks/faq/RNU555 (This link is being provided for informational/ educational purposes only.) . us Shayan Hogan PA-C LAB - BLOOD DRAW Final Result Performing Organization Address City/[facility]/ZIP Co de Phone Number [facility] [address] [address], [facility] [address] [address] * CREATININE KINASE ISOENZYMES W/CK TOTAL Routine (01/21/2025 11:42 AM EDT) [facility] CREATINE KINASE, TOTAL 108 26 - 366 U/L 01/24/2025 9:45 AM EDT [facility] CK-BB None Detected None Detected % 01/26/2025 12:43 PM EDT [facility] CK-MB 0 <5 % 01/26/2025 12:43 PM EDT [facility] CK-MM 100 95 - 100 % 01/26/2025 12:43 PM EDT [facility] INTERPRETATION see note 01/26/2025 12:43 PM EDT [facility] Blood Blood / Unknown 01/21/2025 1 1:42 AM EDT 01/23/2025 3:07 PM EDT Narrative [facility] - 01/26/2025 12:44 PM EDT FASTING:NO FASTING:NO Normal isoenzyme pattern with a normal total activity. us Shayan Hogan PA-C LAB - BLOOD DRAW Final Result [facility] [address] , [email or web address] [address] [place] [address] * RHEUMATOID FACTOR QUANTITATIVE Routine (01/21/2025 11:42 AM EDT) [facility] RHEUMATOID FACTOR <10 <14 IU/mL 01/22/2025 5:08 AM EDT [employer] Blood Blood / Unknown 01/21/2025 1 1:42 AM EDT 01/22/2025 3:38 AM EDT [facility] - 01/22/2025 5:17 AM EDT FASTING:NO us Shayan MIRANDA-C LAB - BLOOD DRAW Final Result [facility] [address] [address], [email or web address] [address] [address] * C-REACTIVE PROTEIN Routine (01/21/2025 11:42 AM EDT) [facility] C-REACTIVE PROTEIN 6.4 <8.0 mg/L 01/22/2025 5:08 AM EDT [employer] [facility] Blood Blood / Unknown 01/21/2025 1 1:42 AM EDT 01/22/2025 3:38 AM EDT Narrative [employer] [facility] - 01/22/2025 5:17 AM EDT FASTING:NO Shayan Hogan PA-C LAB - BLOOD DRAW Final Result [facility] [address] [address], [employer] [address] [address] * (ABNORMAL) BLOOD COUNT COMPLETE AUTOMATED Routine (01/21/2025 11:42 AM EDT) Only the most recent of2 resultswithin the time period is included. [facility] WHITE BLOOD CELL COUNT 8.8 3.8 - 10.8 Thousand/ uL 01/22/2025 4:31 AM [employer] [facility] RED BLOOD CELL COUNT 5.79 4.20 - 5.80 Million/u L 01/22/2025 4:31 AM EDT [facility] HEMOGLOBIN 17.2(H) 13.2 - 17.1 g/dL 01/22/2025 4:31 AM EDPM [facility] HEMATOCRIT 51.6(H) 38.5 - 50.0 % 01/22/2025 4:31 AM [employer] [facility] MCV 89.1 80.0 - 100.0 fL 01/22/2025 4:31 AM EDPM [facility] MCH 29.7 27.0 - 33.0 pg 01/22/2025 4:31 AM EDPM [facility] MCHC 33.3 32.0 - 36.0 g/dL 01/22/2025 4:31 AM EDPM [facility] RDW 13.5 11.0 - 15.0 % 01/22/2025 4:31 AM EDPM [facility] PLATELET COUNT 226 140 - 400 Thousand/ uL 01/22/2025 4:31 AM EDT [facility] MPV 9.3 7.5 - 12.5 fL 01/22/2025 4:31 AM EDT [employer] [facility] Blood Blood / Unknown 01/21/2025 1 1:42 AM EDT 01/22/2025 3:20 AM EDT Narrative [facility] - 01/22/2025 4:33 AM EDT FASTING:NO For adults, a slight decrease in the calculated MCHC value (in the range of 30 to 32 g/dL) is most likely not clinically significant; however, it should be interpreted with caution in correlation with other red cell parameters and the patient's clinical condition. us Shayan Hogan PA-C LAB - BLOOD DRAW Final Result [facility] [address] [address], [facility] [address] [address] * COMPREHENSIVE METABOLIC PANEL Routine (01/21/2025 11:42 AM EDT) GLUCOSE 93 65 - 139 mg/dL 01/22/2025 6:00 AM EDT [facility] UREA NITROGEN (BUN) 16 7 - 25 mg/dL 01/22/2025 6:00 AM EDPM [facility] CREATININE (blood) 0.79 0.60 - 1.29 mg/dL 01/22/2025 6:00 AM EDPM [facility] EGFR 113 > OR = 60 mL/min/1. 73m2 01/22/2025 6:00 AM [employer] [facility] BUN/CREATININE RATIO SEE NOTE: 6 - 22 (calc) 01/22/2025 6:00 AM EDT [facility] SODIUM 138 135 - 146 mmol/L 01/22/2025 6:00 AM EDPM [facility] POTASSIUM 4.4 3.5 - 5.3 mmol/L 01/22/2025 6:00 AM EDPM [facility] CHLORIDE 106 98 - 110 mmol/L 01/22/2025 6:00 AM EDPM [facility] CARBON DIOXIDE 24 20 - 32 mmol/L 01/22/2025 6:00 AM EDPM [facility] CALCIUM 9.3 8.6 - 10.3 mg/dL 01/22/2025 6:00 AM EDT [facility] PROTEIN, TOTAL 7.4 6.1 - 8.1 g/dL 01/22/2025 6:00 AM EDT [facility] ALBUMIN 4.6 3.6 - 5.1 g/dL 01/22/2025 6:00 AM EDT [facility] GLOBULIN 2.8 1.9 - 3.7 g/dL (calc) 01/22/2025 6:00 AM EDT [facility] ALBUMIN/GLOBULI N RATIO 1.6 1.0 - 2.5 (calc) 01/22/2025 6:00 AM EDT [facility] BILIRUBIN, TOTAL 0.5 0.2 - 1.2 mg/dL 01/22/2025 6:00 AM EDT [facility] ALKALINE PHOSPHATASE 98 36 - 130 U/L 01/22/2025 6:00 AM EDT [facility] AST 21 10 - 40 U/L 01/22/2025 6:00 AM EDT [employer] [facility] ALT 26 9 - 46 U/L 01/22/2025 6:00 AM EDT [facility] Blood Blood / Unknown 01/21/2025 1 1:42 AM EDT 01/22/2025 3:38 AM EDT Narrative [employer] [facility] - 01/22/2025 6:31 AM EDT FASTING:NO . Non-fasting reference interval . Not Reported: BUN and Creatinine are within reference range. . Shayan Hogan PA-C LAB - BLOOD DRAW Final Result [employer] [address] [address], [facility] [address] [address] * RPR (DIAGNOSIS) WITH REFLEX TO TITER AND CONFIRMATORY TESTING Routine (01/08/2025 12:06 PM EDT) RPR (DX) W/REFL TITER AND CONFIRMATORY TESTING NON-REACT IRAJ NON-REACT IRAJ 01/10/2025 4:47 PM EDT [facility] Serum Blood / Unknown 01/08/2025 1 2:06 PM EDT 01/09/2025 2:00 AM EDT Narrative [employer] - 01/10/2025 4:51 PM EDT FASTING:NO . No laboratory evidence of syphilis. If recent exposure is suspected, submit a new sample in 2-4 weeks. . us Ayse Mccracken NP LAB - BLOOD DRAW Final Resul t [employer] [address] [address], [employer] [address] [place] [address] * (ABNORMAL) LIPIDS W RFLX TO DIRECT LDL (03/20/2024 9:03 AM EST) [facility] Signature CHOLESTEROL, TOTAL 256(H) <200 mg/dL [employer] HDL CHOLESTEROL 28(L) > OR = 40 mg/dL [facility] TRIGLYCERIDES 423(H) <150 mg/dL [facility] Comment: If a non-fasting specimen was collected, consider repeat triglyceride testing on a fasting specimen if clinically indicated. Mcdonough et al. J. of Clin. Lipidol. 2015;9:129-169. LDL-CHOLESTEROL See Note [facility] [employer] Comment: LDL cholesterol not calculated. Triglyceride levels greater than 400 mg/dL invalidate calculated LDL results. Reference range: <100 Desirable range <100 mg/dL for primary prevention; <70 mg/dL for patients with CHD or diabetic patients with > or = 2 CHD risk factors. LDL-C is now calculated using the Giovani-Arlet calculation, which is a validated novel method providing better accuracy than the Friedewald equation in the estimation of LDL-C. Giovani PRESLEY et al. JOHNNIE. 2013;310(19): 3776-6992 (http://education.Zenprise/faq/NKO349) CHOL/HDLC RATIO 9.1(H) <5.0 (calc) [facility] NON-HDL CHOLESTEROL 228(H) <130 mg/dL (calc) [facility] Comment: For patients with diabetes plus 1 major ASCVD risk factor, treating to a non-HDL-C goal of <100 mg/dL (LDL-C of <70 mg/dL) is considered a therapeutic option. Blood Blood / Unknown 03/20/2024 9 :03 AM EST 03/20/2024 9:04 AM EST Narrative [facility] - 2024 11:15 AM EST FASTING:YES Ronny Smith MD LAB - BLOOD DRAW Final Result [facility] [address] [address], [facility] [address] [place] [address] from Last 3 Months or Most Recently Relevant to Health Maintenance Insurance [place] [address] ACO Care Teams Engineering Drawings Checker Relationship Specialty Start Date End Date Ronny Smith MD [address] [place] [address] PCP - General Internal Medicine 09/25/23
--- OUTSIDE RECORDS SUMMARY | 2025-02-11 11:21 | XMS_ITS | Encounter Summary ---
Author Organization [facility] Address [address] [place] [address] Phone Care Team Providers Care Child Daycare Worker Name Role Phone Dominique Holloway HOSPICE ART THERAPIST Primary Care Provider Pcp, Unknown Unavailable Unavailable Encounter Details Date Type Department Care Team (Late st Contact Info) Description 08/07/2023 Transcribe Orders [facility] [address] [address] Pcp, Unknown Social History Tobacco Use Types [...] on filedocumented in this encounter Care Teams Child Daycare Worker Relationship Specialty Start Date End Date Dominique Holloway NP [facility] [id number] PCP - General Nurse Practitioner 05/03/23 Pcp, Unknown 05/03/23 documented as of this encounter Additional Source Comments The information contained in this document represents components of the legal health record. It is not the complete legal health record.[facility]
--- OUTSIDE RECORDS SUMMARY | 2025-02-11 11:21 | XMS_ITS | Clinical Summary ---
Author Organization [facility] Address [address] [place] [phone] Phone Care Team Providers Care Director Of Intelligence Name Role Phone Dominique Holloway NP Primary [...] topic Medical Devices Not on file Insurance [facility] C3 ACO Advance Directives For more information, please contact: [phone] (9AM - 5PM [facility], Saturday-Saturday) Documents on File Type Date Recorded Patient Stabber Expl anation Healthcare Proxy 06/06/2023 2:37 PM * Full Code (Latest Code Status on File) Date Activated Date Inactivated Comments 06/03/2023 2:42 PM Question Answer Comments Code Status Confirmed With: Patient Care Teams Director Of Intelligence Relationship Specialty Start Date End Date Dominique Holloway NP [address] [place] [address] PCP - General Nurse Practitioner 05/03/23 Pcp, Unknown 05/03/23 Additional Source Comments The information contained in this document represents components of the legal health record. It is not the complete legal health record.[facility]
== END 2025-02-11 11:14 | disposition home or self-care (01) ==
LOC: HO.HUSH 10:02
PROVIDERS: PCP Student in an Organized Health Care Education/Training Program; Visit Provider Nurse Practitioner Family
DX: R10.9 Unspecified abdominal pain (principal); N20.0 Calculus of kidney; Z13.9 Encounter for screening, unspecified
CPT/HCPCS: 99214

== ENCOUNTER → 2025-02-11 10:02 | Outpatient (BNVA) | payer MEDICAID, SELFPAY | PROVIDERS: PCP Student in an Organized Health Care Education/Training Program; Visit Provider Nurse Practitioner Family | DX: N20.0 Calculus of kidney (principal); R10.9 Unspecified abdominal pain | CPT/HCPCS: 81003; 99212 ==